=== PATIENT | female | born 1970 | race African-American/Black ===

== ENCOUNTER 2016-07-30 18:13 | Emergency (ER) | payer MEDICAID ==
[~2016-07-30] VITALS: Ht 152.4 cm; Wt 73.0 kg
[~2016-07-30 18:13] MED LIST: AMLO5TAB2 PO; BUTA1CAP28 PO; BUTA1CAP58 PO; CITA40TA5 PO; CYCL5TAB PO; CYCL5TAB10 PO; DIAZ10TA PO; DIAZ10TA4 PO; DIAZ5TAB PO; FLUD0.1T PO; GABA100C PO; GABA100C8 PO; HYDR-3240 PO; LEVE250T28; LEVE750T37 PO; LISI2.5T PO; LISI40TA PO; MECL-76 PO; MECL25TA4 PO; MELO-190 PO; METO25TA35 PO; NAPR500T3 PO; OXYC-223 PO; OXYC-229 PO; POTA10TA57 PO; RANI150T8 PO; TOPI200T6 PO; TRAM50TA2 PO; VERAPAMIL PO; ZOLP10TA3; [UNRECOGNIZED DRUG - CODE] PO; [UNRECOGNIZED DRUG - OTHER]; [UNRECOGNIZED DRUG - OTHER] PO; [UNRECOGNIZED DRUG - REMARK]
[2016-07-30] MEDS ORDERED: HYDR25TA6 PO (19:10)
[2016-07-30] MEDS ORDERED: GABA400C PO (19:10)
[2016-07-30 20:42] VITALS: BP 137/86
== END 2016-07-30 20:44 | disposition home or self-care (01) ==
LOC: ED 20:13
DX: R60.0 Localized edema (principal); G40.909 Epilepsy, unspecified, not intractable, without status epilepticus; I10 Essential (primary) hypertension; G43.909 Migraine, unspecified, not intractable, without status migrainosus; Z86.73 Personal history of transient ischemic attack (TIA), and cerebral infarction without residual deficits
CPT/HCPCS: 99284

== ENCOUNTER 2016-09-23 14:16 | Emergency (ER) | payer MEDICAID ==
[~2016-09-23] VITALS: Ht 149.9 cm; Wt 70.0 kg
[~2016-09-23 14:16] MED LIST changes: +GABA400C PO; +HYDR25TA6 PO
[2016-09-23] MEDS ORDERED: SODIUM CHLORIDE 0.9% 1,000 ML IV ONE (15:21)
[2016-09-23] MEDS ORDERED: SODIUM CHLORIDE FLUSH 10ML SYR IVF ONE (15:30)
[2016-09-23] MEDS ORDERED: ONDANSETRON 2MG/ML, 2ML IVPush ONE (15:30)
[2016-09-23] MEDS ORDERED: ONDANSETRON 2MG/ML, 2ML ONE (15:58)
[2016-09-23] MEDS ORDERED: HYDROmorphone 1 MG/ML, 1ML ONE ×2 (15:58→17:11)
[2016-09-23] MEDS: HYDROmorphone 1 MG/ML, 1ML IVPush PRN ×2 (16:02→17:18)
[2016-09-23 16:16] LABS: BLOOD UREA NITROGEN 6 mg/dL (7-18)
[2016-09-23] MEDS ORDERED: LABETALOL 5MG/ML, 20ML IVPush ONE (17:00)
[2016-09-23] MEDS ORDERED: ENALAPRILAT 1.25 MG/ML, 2ML IV ONE (17:00)
[2016-09-23] MEDS ORDERED: HYDROmorphone 2 MG/ML, 1ML IVPush ONE (17:00)
[2016-09-23] MEDS ORDERED: POTASSIUM CHLORIDE 20 MEQ TAB.ER.PRT PO ONE (17:00)
[2016-09-23] MEDS ORDERED: LABETALOL 5MG/ML, 20ML ONE (17:11)
[2016-09-23] MEDS ORDERED: ENALAPRILAT 1.25 MG/ML, 2ML ONE (17:11)
[2016-09-23] MEDS ORDERED: POTASSIUM CHLORIDE 20 MEQ TAB.ER.PRT ONE (17:12)
[2016-09-23 18:28] VITALS: BP 146/82
== END 2016-09-23 18:30 | disposition home or self-care (01) ==
LOC: ED 18:24
DX: G43.109 Migraine with aura, not intractable, without status migrainosus (principal); I10 Essential (primary) hypertension; G40.909 Epilepsy, unspecified, not intractable, without status epilepticus; Z86.73 Personal history of transient ischemic attack (TIA), and cerebral infarction without residual deficits
CPT/HCPCS: 36415; 70450; 80048; 82040; 85025; 85610; 93005; 96361; 96374; 96375; 96376; 99285; J1170; J2405; J7030

== ENCOUNTER 2016-10-07 22:26 | Emergency (ER) | payer MEDICAID ==
[~2016-10-07] VITALS: Ht 149.9 cm; Wt 69.0 kg
[~2016-10-07 22:26] MED LIST changes: +GABA-826 PO; -GABA100C8 PO
[2016-10-08] MEDS ORDERED: KETOROLAC 30 MG/1 ML IM ONE
[2016-10-08] MEDS ORDERED: METHOCARBAMOL 750 MG TABLET PO ONE
[2016-10-08 00:11] LABS: ASPARTATE AMINO TRANSFERASE 13 U/L (15-37); BLOOD UREA NITROGEN 17 mg/dL (7-18)
[2016-10-08] MEDS ORDERED: METHOCARBAMOL 750 MG TABLET ONE (00:34)
[2016-10-08] MEDS ORDERED: KETOROLAC 30 MG/1 ML ONE (00:34)
[2016-10-08 01:02] VITALS: BP 112/71
== END 2016-10-08 03:04 | disposition home or self-care (01) ==
LOC: ED 23:55
DX: S39.012A Strain of muscle, fascia and tendon of lower back, initial encounter (principal); S29.012A Strain of muscle and tendon of back wall of thorax, initial encounter; X58.XXXA Exposure to other specified factors, initial encounter; Y93.89 Activity, other specified; Y99.8 Other external cause status; Y92.89 Other specified places as the place of occurrence of the external cause
CPT/HCPCS: 36415; 80053; 81003; 85025; 96372; 99284; J1885

== ENCOUNTER 2016-10-30 15:36 | Emergency (ER) | payer MEDICAID ==
[~2016-10-30] VITALS: Ht 149.9 cm; Wt 82.0 kg
[2016-10-30] MEDS ORDERED: SODIUM CHLORIDE 0.9% 1,000ML IVBOLUS ONE (16:00)
[2016-10-30] MEDS ORDERED: ONDANSETRON 2MG/ML, 2ML IVPush ONE (16:00)
[2016-10-30] MEDS ORDERED: SODIUM CHLORIDE FLUSH 10ML SYR IVF ONE (16:00)
[2016-10-30] MEDS ORDERED: DIPHENHYDRAMINE 50 MG/ML, 1ML IVPush ONE (16:00)
[2016-10-30] MEDS ORDERED: DIPHENHYDRAMINE 50 MG/ML, 1ML ONE (16:08)
[2016-10-30] MEDS ORDERED: HYDROmorphone 1 MG/ML, 1ML ONE (16:08)
[2016-10-30] MEDS ORDERED: ONDANSETRON 2MG/ML, 2ML ONE (16:08)
[2016-10-30 16:19] LABS: BLOOD UREA NITROGEN 8 mg/dL (7-18)
[2016-10-30 16:25] LABS: ASPARTATE AMINO TRANSFERASE 9 U/L (15-37)
[2016-10-30] MEDS: HYDROmorphone 1 MG/ML, 1ML IVPush PRN ×2 (16:37→17:02)
[2016-10-30 17:39] VITALS: BP 116/74
[2016-10-30] MEDS ORDERED: KETOROLAC 30 MG/1 ML ONE (18:27)
[2016-10-30] MEDS ORDERED: KETOROLAC 30 MG/1 ML IVPush ONE (18:30)
== END 2016-10-30 19:11 | disposition home or self-care (01) ==
LOC: ED 18:04
DX: R10.9 Unspecified abdominal pain (principal); I10 Essential (primary) hypertension; G40.909 Epilepsy, unspecified, not intractable, without status epilepticus; Z86.73 Personal history of transient ischemic attack (TIA), and cerebral infarction without residual deficits
CPT/HCPCS: 36415; 74176; 80053; 81003; 83690; 84703; 85025; 96361; 96374; 96375; 99285; J1170; J1200; J1885; J2405; J7030

== ENCOUNTER 2017-01-01 23:15 | Emergency (ER) | payer MEDICAID ==
[~2017-01-01] VITALS: Ht 149.9 cm; Wt 70.0 kg
[~2017-01-01 23:15] MED LIST changes: -MELO-190 PO; +MELO7.5T31 PO; -OXYC-223 PO; -OXYC-229 PO; +OXYC-306 PO; +OXYC-307 PO
[2017-01-01 23:16] VITALS: BP 153/104
== END 2017-01-02 01:41 | disposition left against medical advice (07) ==
LOC: ED 01-02 01:35
DX: R51 Headache (principal); Z53.21 Procedure and treatment not carried out due to patient leaving prior to being seen by health care provider

== ENCOUNTER 2017-01-24 17:39 | Emergency (ER) | payer MEDICAID ==
[~2017-01-24] VITALS: Ht 149.9 cm; Wt 68.1 kg
[2017-01-24 18:51] LABS: HEMATOCRIT 47.6 % (34.6-47.8); HEMOGLOBIN 15.9 g/dL (11.7-16.4); WHITE BLOOD COUNT 5.6 x10^3/uL (3.4-10)
[2017-01-24] MEDS ORDERED: CLON0.1T PO (18:52)
[2017-01-24 18:56] LABS: BLOOD UREA NITROGEN 4 mg/dL (7-18)
[2017-01-24 19:00] VITALS: BP 144/92
[2017-01-24] MEDS ORDERED: OXYcodone/APAP 5/325MG TABLET ONE (19:29)
[2017-01-24] MEDS ORDERED: OXYcodone/APAP 5/325MG TABLET PO ONE (19:30)
== END 2017-01-24 20:02 | disposition home or self-care (01) ==
LOC: ED 19:56
DX: R60.9 Edema, unspecified (principal); I10 Essential (primary) hypertension; G40.909 Epilepsy, unspecified, not intractable, without status epilepticus; G43.909 Migraine, unspecified, not intractable, without status migrainosus; Z86.73 Personal history of transient ischemic attack (TIA), and cerebral infarction without residual deficits; Z93.3 Colostomy status
CPT/HCPCS: 36415; 80048; 82040; 83880; 85025; 93005; 99285

== ENCOUNTER 2017-04-20 18:07 | Emergency (ER) | payer MEDICAID ==
[~2017-04-20] VITALS: Ht 149.9 cm; Wt 68.2 kg
[~2017-04-20 18:07] MED LIST changes: +CLON0.1T PO; -NAPR500T3 PO; +NAPR500T4 PO
[2017-04-20 20:23] LABS: BASOPHILS # (AUTO) 0.01 x10^3/uL (0-0.1); BASOPHILS % (AUTO) 0 % (0-1); EOSINOPHILS # (AUTO) 0.05 x10^3/uL (0-0.4); EOSINOPHILS % (AUTO) 1 % (1-7); LYMPHOCYTES # (AUTO) 0.83 x10^3/uL (1-3.4); LYMPHOCYTES % (AUTO) 12 % (22-44); MD NO; MEAN CORPUSCULAR HEMOGLOBIN 30.8 pg (27.0-34.8); MEAN CORPUSCULAR HGB CONC 32.9 g/dL (32.4-35.8); MEAN CORPUSCULAR VOLUME 93.7 fL (80-100); MEAN PLATELET VOLUME 6.7 fL (7.4-10.4); MONOCYTES # (AUTO) 0.14 x10^3/uL (0.2-0.8); MONOCYTES % (AUTO) 2 % (2-9); NEUTROPHILS # (AUTO) 5.87 x10^3/uL (1.8-6.8); NEUTROPHILS % (AUTO) 85 % (42-75); PLATELET COUNT 309 x10^3/uL (130-400); RED BLOOD COUNT 5.42 x10^6/uL (3.82-5.3); RED CELL DISTRIBUTION WIDTH 15.2 % (9.6-15.2)
[2017-04-20 20:35] LABS: ANION GAP 10 mmol/L (5-15); CALCIUM 9.7 mg/dL (8.5-10.1); CHLORIDE 99 mmol/L (98-107); CREATININE 0.83 mg/dL (0.55-1.02)
[2017-04-20 20:36] LABS: ALANINE AMINOTRANSFERASE 23 U/L (12-78); ALBUMIN 4.6 g/dL (3.4-5.0)
[2017-04-20 20:38] LABS: ALKALINE PHOSPHATASE 70 U/L (45-117); BILIRUBIN,TOTAL 0.5 mg/dL (0.2-1.0); TOTAL PROTEIN 10.1 g/dL (6.4-8.2)
[2017-04-20 21:55] LABS: CULTURE INDICATED? YES; MICROSCOPIC AUTO
[2017-04-20] MEDS ORDERED: KETOROLAC 30 MG/1 ML IM ONE (22:30)
[2017-04-20] MEDS ORDERED: HYDROmorphone 1 MG/ML, 1ML IM ONE (22:30)
[2017-04-20 23:29] VITALS: BP 127/76
== END 2017-04-20 23:31 | disposition home or self-care (01) ==
LOC: ED 23:28
DX: N83.292 Other ovarian cyst, left side (principal); R10.2 Pelvic and perineal pain; Z86.73 Personal history of transient ischemic attack (TIA), and cerebral infarction without residual deficits; I10 Essential (primary) hypertension
CPT/HCPCS: 36415; 76830; 80053; 81001; 83690; 85025; 87077; 87086; 87186; 99285

== ENCOUNTER 2017-04-23 00:30 | Inpatient (IN) | payer MEDICAID ==
[~2017-04-23] VITALS: Ht 149.9 cm; Wt 81.0 kg
[2017-04-23 01:15] LABS: BASOPHILS # (AUTO) 0.03 x10^3/uL (0-0.1); BASOPHILS % (AUTO) 0 % (0-1); EOSINOPHILS # (AUTO) 0.25 x10^3/uL (0-0.4); EOSINOPHILS % (AUTO) 3 % (1-7); LYMPHOCYTES # (AUTO) 1.32 x10^3/uL (1-3.4); LYMPHOCYTES % (AUTO) 15 % (22-44); MD NO; MEAN CORPUSCULAR HEMOGLOBIN 30.7 pg (27.0-34.8); MEAN CORPUSCULAR HGB CONC 32.9 g/dL (32.4-35.8); MEAN CORPUSCULAR VOLUME 93.2 fL (80-100); MEAN PLATELET VOLUME 6.8 fL (7.4-10.4); MONOCYTES # (AUTO) 0.53 x10^3/uL (0.2-0.8); MONOCYTES % (AUTO) 6 % (2-9); NEUTROPHILS # (AUTO) 6.68 x10^3/uL (1.8-6.8); NEUTROPHILS % (AUTO) 76 % (42-75); PLATELET COUNT 336 x10^3/uL (130-400); RED BLOOD COUNT 5.28 x10^6/uL (3.82-5.3); RED CELL DISTRIBUTION WIDTH 15.2 % (9.6-15.2)
[2017-04-23 01:17] LABS: ALANINE AMINOTRANSFERASE 26 U/L (12-78); ANION GAP 15 mmol/L (5-15); CALCIUM 9.2 mg/dL (8.5-10.1); CHLORIDE 99 mmol/L (98-107); CREATININE 2.16 mg/dL (0.55-1.02)
[2017-04-23 01:22] LABS: ALKALINE PHOSPHATASE 63 U/L (45-117); BILIRUBIN,TOTAL 0.4 mg/dL (0.2-1.0); TOTAL PROTEIN 8.9 g/dL (6.4-8.2)
[2017-04-23] MEDS ORDERED: HYDROmorphone 2 MG/ML, 1ML ONE (01:42)
[2017-04-23] MEDS: HYDROmorphone 1 MG/ML, 1ML IVPush PRN ×2 (01:59→02:32)
[2017-04-23] MEDS ORDERED: SODIUM CHLORIDE 0.9% 1,000ML IVBOLUS ONE (02:00)
[2017-04-23] MEDS ORDERED: SODIUM CHLORIDE FLUSH 10ML SYR IVF ONE (02:00)
[2017-04-23] MEDS ORDERED: ONDANSETRON 2MG/ML, 2ML ONE (02:13)
[2017-04-23 02:26] LABS: CULTURE INDICATED? YES; MICROSCOPIC INDICATED
[2017-04-23] MEDS ORDERED: KETOROLAC 30 MG/1 ML ONE (02:50)
[2017-04-23] MEDS ORDERED: KETOROLAC 30 MG/1 ML IVPush ONE (03:00)
[2017-04-23] MEDS ORDERED: CEFTRIAXONE PMX 1GM/50ML 50 ML IV ONE (03:00)
[2017-04-23] MEDS ORDERED: SODIUM CHLORIDE 0.9% 1,000 ML IV SCH (03:23)
[2017-04-23] MEDS ORDERED: POLYETHYLENE GLYCOL 17 GM PACKET PO PRN (03:30)
[2017-04-23] MEDS ORDERED: ONDANSETRON 2MG/ML, 2ML IVPush PRN (03:30)
[2017-04-23] MEDS ORDERED: NICOTINE 7 MG/24 HR PATCH.TD24 TD SCH (03:30)
[2017-04-23] MEDS ORDERED: ACETAMINOPHEN 325 MG TABLET PO PRN (03:30)
[2017-04-23] MEDS ORDERED: BISACODYL 10 MG SUPP PR PRN (03:30)
[2017-04-23] MEDS ORDERED: hydrALAzine 20 MG/ML, 1ML IVPush PRN (03:30)
[2017-04-23] MEDS ORDERED: OXYcodone IR 5MG TABLET PO PRN (03:30)
[2017-04-23] MEDS ORDERED: ENALAPRILAT 1.25 MG/ML, 2ML IVPush PRN (03:30)
[2017-04-23] MEDS ORDERED: POTASSIUM CHLORIDE 40 MEQ in SODIUM CHLORIDE 0.9% 500 ML IV ONE (04:00)
[2017-04-23] MEDS ORDERED: BUTALBIT/ACETAMIN/CAFF/CODEINE CAPSULE PO PRN (04:00)
[2017-04-23] MEDS ORDERED: MECLIZINE CHEWABLE 25 MG TAB PO SCH (04:00)
[2017-04-23 04:08] LABS: FREE T4 (FREE THYROXINE) 1.12 ng/dL (0.76-1.46); THYROID STIMULATING HORMONE 0.818 mIU/L (0.358-3.740)
[2017-04-23 04:26] LABS: HEMOGLOBIN A1C 5.8 % (4.2-6.3)
[2017-04-23] MEDS ORDERED: MECLIZINE MC SCH (04:30)
[2017-04-23 05:00] VITALS: BP 97/63
[2017-04-23] MEDS: HYDROmorphone 2 MG/ML, 1ML IVPush PRN ×2 (06:00→07:52)
[2017-04-23] MEDS ORDERED: GABAPENTIN 400 MG CAPSULE PO SCH (09:00)
[2017-04-23] MEDS ORDERED: METOPROLOL TARTRATE 25 MG TABLET PO SCH (09:00)
[2017-04-23] MEDS ORDERED: CEFTRIAXONE PMX 2GM/50ML 50 ML IV SCH (09:00)
[2017-04-23] MEDS ORDERED: SENNA/DOCUSATE TABLET PO SCH (09:00)
[2017-04-23] MEDS ORDERED: LEVETIRACETAM 100 MG/ML ORAL SOL PO SCH (09:00)
[2017-04-23] MEDS ORDERED: AMLODIPINE 5 MG TABLET PO SCH (09:00)
[2017-04-23] MEDS ORDERED: LISINOPRIL 20 MG TABLET PO SCH (09:00)
== END 2017-04-23 09:40 | disposition left against medical advice (07) | DRG 693 ==
LOC: ED 03:16 → EDIP 03:20 → 4WST 04:02
PROVIDERS: ADMIT Internal Medicine; ATTEND Internal Medicine
DX: N20.2 Calculus of kidney with calculus of ureter (principal); N17.0 Acute kidney failure with tubular necrosis; N10 Acute pyelonephritis; I10 Essential (primary) hypertension; G43.909 Migraine, unspecified, not intractable, without status migrainosus; F17.210 Nicotine dependence, cigarettes, uncomplicated; E87.6 Hypokalemia; G40.909 Epilepsy, unspecified, not intractable, without status epilepticus; G89.29 Other chronic pain; F32.9 Major depressive disorder, single episode, unspecified; N83.292 Other ovarian cyst, left side; H81.10 Benign paroxysmal vertigo, unspecified ear; Z53.21 Procedure and treatment not carried out due to patient leaving prior to being seen by health care provider; Z93.0 Tracheostomy status; Z98.51 Tubal ligation status; Z93.3 Colostomy status; Z79.899 Other long term (current) drug therapy; Z80.1 Family history of malignant neoplasm of trachea, bronchus and lung; Z86.73 Personal history of transient ischemic attack (TIA), and cerebral infarction without residual deficits; Z88.5 Allergy status to narcotic agent; Z88.1 Allergy status to other antibiotic agents
CPT/HCPCS: 36415; 74176; 80053; 81001; 83036; 83690; 83735; 84439; 84443; 84703; 85025; 87077; 87086; 87186; 96374; 96376; J1170; J3480; J7030; J7040

== ENCOUNTER 2017-06-17 19:19 | Emergency (ER) | payer MEDICAID ==
[~2017-06-17] VITALS: Ht 149.9 cm; Wt 63.6 kg
[2017-06-17] MEDS ORDERED: METH750T87 PO (19:44)
[2017-06-17] MEDS ORDERED: DICY20TA3 PO (19:44)
[2017-06-17] MEDS ORDERED: HYDR30TA PEG (19:44)
[2017-06-17] MEDS ORDERED: AMIT75TA PO (19:44)
[2017-06-17] MEDS ORDERED: POTA10CA PO (19:44)
[2017-06-17] MEDS ORDERED: DIAZ5TAB4 PO (19:44)
[2017-06-17] MEDS ORDERED: SODIUM CHLORIDE 0.9% 1,000ML IVBOLUS ONE (20:00)
[2017-06-17] MEDS ORDERED: SODIUM CHLORIDE FLUSH 10ML SYR IVF ONE (20:00)
[2017-06-17] MEDS ORDERED: HYDROmorphone 1 MG/ML, 1ML IV ONE (20:00)
[2017-06-17] MEDS ORDERED: OMNIPAQUE 350 MG/ML, 100ML BOTTLE ONE (20:00)
[2017-06-17] MEDS ORDERED: ONDANSETRON 2MG/ML, 2ML IVPush ONE (20:00)
[2017-06-17 20:07] LABS: BASOPHILS # (AUTO) 0.05 x10^3/uL (0-0.1); BASOPHILS % (AUTO) 1 % (0-1); EOSINOPHILS # (AUTO) 0.08 x10^3/uL (0-0.4); EOSINOPHILS % (AUTO) 1 % (1-7); LYMPHOCYTES # (AUTO) 1.48 x10^3/uL (1-3.4); LYMPHOCYTES % (AUTO) 16 % (22-44); MD NO; MEAN CORPUSCULAR HEMOGLOBIN 31.4 pg (27.0-34.8); MEAN CORPUSCULAR HGB CONC 33.6 g/dL (32.4-35.8); MEAN CORPUSCULAR VOLUME 93.4 fL (80-100); MEAN PLATELET VOLUME 6.8 fL (7.4-10.4); MONOCYTES # (AUTO) 0.49 x10^3/uL (0.2-0.8); MONOCYTES % (AUTO) 5 % (2-9); NEUTROPHILS # (AUTO) 7.21 x10^3/uL (1.8-6.8); NEUTROPHILS % (AUTO) 77 % (42-75); PLATELET COUNT 423 x10^3/uL (130-400); RED BLOOD COUNT 4.83 x10^6/uL (3.82-5.3); RED CELL DISTRIBUTION WIDTH 14.9 % (9.6-15.2)
[2017-06-17 20:19] LABS: ALANINE AMINOTRANSFERASE 24 U/L (12-78); ALBUMIN 3.8 g/dL (3.4-5.0); ANION GAP 7 mmol/L (5-15); CHLORIDE 99 mmol/L (98-107); CREATININE 0.93 mg/dL (0.55-1.02)
[2017-06-17 20:23] LABS: ALKALINE PHOSPHATASE 58 U/L (45-117); BILIRUBIN,TOTAL 0.4 mg/dL (0.2-1.0); TOTAL PROTEIN 8.5 g/dL (6.4-8.2); TROPONIN I < 0.015 ng/mL (0.000-0.045)
[2017-06-17] MEDS ORDERED: HYDROmorphone 2 MG/ML, 1ML ONE (20:26)
[2017-06-17] MEDS ORDERED: ONDANSETRON 2MG/ML, 2ML ONE (20:27)
[2017-06-17 21:18] VITALS: BP 124/76
== END 2017-06-17 22:11 | disposition home or self-care (01) ==
LOC: ED 21:35
DX: R07.89 Other chest pain (principal); R51 Headache; G89.29 Other chronic pain; G43.909 Migraine, unspecified, not intractable, without status migrainosus; G40.909 Epilepsy, unspecified, not intractable, without status epilepticus; I10 Essential (primary) hypertension; Z93.3 Colostomy status
CPT/HCPCS: 36415; 71275; 80053; 84484; 85025; 93005; 99285; Q9967

== ENCOUNTER 2017-07-02 16:32 | Emergency (ER) | payer MEDICAID ==
[~2017-07-02] VITALS: Ht 149.9 cm; Wt 64.0 kg
[~2017-07-02 16:32] MED LIST changes: +AMIT75TA PO; +DIAZ5TAB4 PO; +DICY20TA3 PO; +HYDR30TA PEG; +METH750T87 PO; +NAPR-685 PO; -NAPR500T4 PO; +POTA10CA PO
[2017-07-02] MEDS ORDERED: SODIUM CHLORIDE FLUSH 10ML SYR IVF ONE (17:00)
[2017-07-02] MEDS ORDERED: FAMOTIDINE 20 MG/2 ML IVP ONE (17:00)
[2017-07-02] MEDS ORDERED: ONDANSETRON 2MG/ML, 2ML IVPush ONE (17:00)
[2017-07-02] MEDS ORDERED: MAALOX/HYOSCYAMINE/LIDOCAINE 45 ML BTL PO ONE (17:00)
[2017-07-02] MEDS ORDERED: MAALOX/HYOSCYAMINE/LIDOCAINE 45 ML BTL ONE (17:19)
[2017-07-02] MEDS ORDERED: ONDANSETRON 2MG/ML, 2ML ONE (17:19)
[2017-07-02] MEDS ORDERED: FAMOTIDINE 20 MG/2 ML ONE (17:19)
[2017-07-02 17:48] LABS: MICROSCOPIC NOT IND
[2017-07-02 17:50] LABS: CULTURE INDICATED? NO
[2017-07-02 19:16] LABS: BASOPHILS # (AUTO) 0.02 x10^3/uL (0-0.1); BASOPHILS % (AUTO) 0 % (0-1); EOSINOPHILS # (AUTO) 0.12 x10^3/uL (0-0.4); EOSINOPHILS % (AUTO) 2 % (1-7); LYMPHOCYTES # (AUTO) 1.34 x10^3/uL (1-3.4); LYMPHOCYTES % (AUTO) 26 % (22-44); MD NO; MEAN CORPUSCULAR HEMOGLOBIN 31.6 pg (27.0-34.8); MEAN CORPUSCULAR HGB CONC 33.6 g/dL (32.4-35.8); MEAN PLATELET VOLUME 6.9 fL (7.4-10.4); MONOCYTES # (AUTO) 0.35 x10^3/uL (0.2-0.8); MONOCYTES % (AUTO) 7 % (2-9); NEUTROPHILS # (AUTO) 3.33 x10^3/uL (1.8-6.8); NEUTROPHILS % (AUTO) 65 % (42-75); PLATELET COUNT 342 x10^3/uL (130-400); RED BLOOD COUNT 4.34 x10^6/uL (3.82-5.3); RED CELL DISTRIBUTION WIDTH 14.5 % (9.6-15.2)
[2017-07-02 19:25] LABS: ALANINE AMINOTRANSFERASE 24 U/L (12-78); ALBUMIN 3.6 g/dL (3.4-5.0); ANION GAP 6 mmol/L (5-15); CALCIUM 8.6 mg/dL (8.5-10.1); CHLORIDE 106 mmol/L (98-107); CREATININE 0.82 mg/dL (0.55-1.02)
[2017-07-02 19:30] LABS: ALKALINE PHOSPHATASE 48 U/L (45-117); BILIRUBIN,TOTAL 0.6 mg/dL (0.2-1.0); TOTAL PROTEIN 7.9 g/dL (6.4-8.2); TROPONIN I < 0.015 ng/mL (0.000-0.045)
[2017-07-02 19:54] VITALS: BP 101/65
== END 2017-07-02 20:25 | disposition home or self-care (01) ==
LOC: ED 17:17
DX: R10.13 Epigastric pain (principal); K59.00 Constipation, unspecified; I10 Essential (primary) hypertension; G89.29 Other chronic pain; G40.909 Epilepsy, unspecified, not intractable, without status epilepticus; G43.909 Migraine, unspecified, not intractable, without status migrainosus; Z93.3 Colostomy status; Z72.0 Tobacco use; Z86.73 Personal history of transient ischemic attack (TIA), and cerebral infarction without residual deficits
CPT/HCPCS: 36415; 74022; 80053; 81003; 83690; 84484; 85025; 93005; 96374; 96375; 99285; J2405; S0028

== ENCOUNTER 2017-08-23 04:27 | Emergency (ER) | payer MEDICAID ==
[~2017-08-23 04:27] MED LIST changes: +RANI150T23 PO; -RANI150T8 PO
[2017-08-23] MEDS ORDERED: MAALOX/HYOSCYAMINE/LIDOCAINE 45 ML BTL ONE (05:18)
[2017-08-23] MEDS ORDERED: ONDANSETRON ODT 4 MG ONE (05:18)
[2017-08-23] MEDS ORDERED: ONDANSETRON ODT 4 MG PO ONE (05:30)
[2017-08-23] MEDS ORDERED: MAALOX/HYOSCYAMINE/LIDOCAINE 45 ML BTL PO ONE (05:30)
[2017-08-23 05:35] LABS: BASOPHILS # (AUTO) 0.02 x10^3/uL (0-0.1); BASOPHILS % (AUTO) 0 % (0-1); EOSINOPHILS # (AUTO) 0.15 x10^3/uL (0-0.4); EOSINOPHILS % (AUTO) 3 % (1-7); LYMPHOCYTES # (AUTO) 1.89 x10^3/uL (1-3.4); LYMPHOCYTES % (AUTO) 38 % (22-44); MD NO; MEAN CORPUSCULAR HEMOGLOBIN 31.3 pg (27.0-34.8); MEAN PLATELET VOLUME 6.9 fL (7.4-10.4); MONOCYTES # (AUTO) 0.33 x10^3/uL (0.2-0.8); MONOCYTES % (AUTO) 7 % (2-9); NEUTROPHILS # (AUTO) 2.53 x10^3/uL (1.8-6.8); NEUTROPHILS % (AUTO) 51 % (42-75); PLATELET COUNT 265 x10^3/uL (130-400); RED BLOOD COUNT 4.23 x10^6/uL (3.82-5.3); RED CELL DISTRIBUTION WIDTH 13.7 % (9.6-15.2)
[2017-08-23 05:47] LABS: ALBUMIN 3.3 g/dL (3.4-5.0); ANION GAP 6 mmol/L (5-15); CALCIUM 8.5 mg/dL (8.5-10.1); CHLORIDE 107 mmol/L (98-107)
[2017-08-23 05:51] LABS: ALANINE AMINOTRANSFERASE 19 U/L (12-78); ALKALINE PHOSPHATASE 44 U/L (45-117); BILIRUBIN,TOTAL 0.4 mg/dL (0.2-1.0); CREATININE 0.84 mg/dL (0.55-1.02)
[2017-08-23 07:45] LABS: TROPONIN I < 0.015 ng/mL (0.000-0.045)
[2017-08-23] MEDS ORDERED: FAMOTIDINE 20 MG/2 ML ONE (08:11)
[2017-08-23] MEDS ORDERED: FAMOTIDINE 20 MG/2 ML IVP ONE (08:30)
[2017-08-23] MEDS ORDERED: OMNIPAQUE 350 MG/ML, 100ML BOTTLE ONE (08:38)
[2017-08-23 10:56] VITALS: BP 100/45
== END 2017-08-23 11:00 | disposition home or self-care (01) ==
LOC: ED 10:32
DX: K29.70 Gastritis, unspecified, without bleeding (principal); I10 Essential (primary) hypertension; G40.909 Epilepsy, unspecified, not intractable, without status epilepticus; G43.909 Migraine, unspecified, not intractable, without status migrainosus; Z86.73 Personal history of transient ischemic attack (TIA), and cerebral infarction without residual deficits
CPT/HCPCS: 36415; 71045; 74178; 76700; 80053; 83690; 84484; 85025; 93005; 99285; Q0162; Q9967

== ENCOUNTER 2017-09-16 13:56 | Emergency (ER) | payer MEDICAID ==
[~2017-09-16] VITALS: Ht 149.9 cm; Wt 75.0 kg
[2017-09-16 13:57] VITALS: BP 101/61
== END 2017-09-16 14:52 | disposition home or self-care (01) ==
LOC: ED 14:20
DX: K08.89 Other specified disorders of teeth and supporting structures (principal); F17.200 Nicotine dependence, unspecified, uncomplicated
CPT/HCPCS: 99283

== ENCOUNTER 2018-04-25 21:05 | Emergency (ER) | payer MEDICAID ==
[~2018-04-25] VITALS: Ht 149.9 cm; Wt 81.1 kg
[~2018-04-25 21:05] MED LIST changes: +AMLO-150 PO; -AMLO5TAB2 PO; -CLON0.1T PO; +CLON0.1T22 PO; +HYDR30TA PO; +TIZA2CAP PO
--- NOTE | 2018-04-25 22:24 | NUR ---
TO ROOM FROM LOBBY. NAD.
[2018-04-25] MEDS ORDERED: KETOROLAC 30 MG/1 ML IVPush ONE (22:30)
[2018-04-25] MEDS ORDERED: DIPHENHYDRAMINE 50 MG/ML, 1ML IVPush ONE (22:30)
[2018-04-25] MEDS ORDERED: ONDANSETRON 2MG/ML, 2ML IVPush ONE (22:30)
[2018-04-25] MEDS ORDERED: SODIUM CHLORIDE FLUSH 10ML SYR IVF ONE (22:30)
[2018-04-25] MEDS ORDERED: PROCHLORPERAZINE 5 MG/ML, 2ML IVPush ONE (22:30)
[2018-04-25] MEDS ORDERED: ONDANSETRON 2MG/ML, 2ML ONE (22:33)
[2018-04-25] MEDS ORDERED: KETOROLAC 30 MG/1 ML ONE (22:34)
[2018-04-25] MEDS ORDERED: PROCHLORPERAZINE 5 MG/ML, 2ML ONE (22:34)
[2018-04-25] MEDS ORDERED: DIPHENHYDRAMINE 50 MG/ML, 1ML ONE (22:34)
--- NOTE | 2018-04-25 22:49 | NUR ---
went to pts room for iv start and give meds as md order, while looking and feeling pts arm pts daughter stated 'your being rough, i just saw you' this nurse stated i will get some one else, pts daughter continued to talk, this nurse left room and notified kelle drummond, another rn suraj will take over pts care
[2018-04-25 23:03] LABS: BASOPHILS # (AUTO) 0.01 x10^3/uL (0-0.1); BASOPHILS % (AUTO) 0 % (0-1); EOSINOPHILS # (AUTO) 0.04 x10^3/uL (0-0.4); EOSINOPHILS % (AUTO) 0 % (1-7); LYMPHOCYTES # (AUTO) 0.77 x10^3/uL (1-3.4); LYMPHOCYTES % (AUTO) 9 % (22-44); MD NO; MEAN CORPUSCULAR HEMOGLOBIN 31.2 pg (27.0-34.8); MEAN CORPUSCULAR HGB CONC 33.6 g/dL (32.4-35.8); MEAN CORPUSCULAR VOLUME 92.7 fL (80-100); MEAN PLATELET VOLUME 7.3 fL (7.4-10.4); MONOCYTES # (AUTO) 0.17 x10^3/uL (0.2-0.8); MONOCYTES % (AUTO) 2 % (2-9); NEUTROPHILS % (AUTO) 88 % (42-75); PLATELET COUNT 289 x10^3/uL (130-400); RED CELL DISTRIBUTION WIDTH 13.4 % (9.6-15.2)
[2018-04-25 23:13] LABS: ALBUMIN 3.9 g/dL (3.4-5.0); ANION GAP 9 mmol/L (5-15); CALCIUM 9.4 mg/dL (8.5-10.1); CHLORIDE 105 mmol/L (98-107)
[2018-04-25 23:17] LABS: ALANINE AMINOTRANSFERASE 81 U/L (12-78); ALKALINE PHOSPHATASE 84 U/L (45-117); BILIRUBIN,TOTAL 0.4 mg/dL (0.2-1.0); TOTAL PROTEIN 8.6 g/dL (6.4-8.2)
[2018-04-25] MEDS ORDERED: SODIUM CHLORIDE 0.9% 1,000ML IVBOLUS ONE (23:30)
--- NOTE | 2018-04-25 23:48 | NUR ---
TASK RN: LARGE BORE PIV PLACED WITH US. MEDICATED PER EMAR AND DR. SEN ORDERS.
--- NOTE | 2018-04-26 00:46 | NUR ---
BREAK RN: PT. HAD BEEN UNABLE TO PROVIDE URINE. REQUEST DISPO FROM DANIELLE. AT THIS TIME PT. [place] [facility] [place] DAUGHTER. IVF COMPLETED. PT. REQUESTING TO GO HOME; D/C ORDERS IN.
[2018-04-26 00:47] VITALS: BP 135/77
--- NOTE | 2018-04-26 00:48 | NUR ---
PT. UNABLE TO VOID.
[2018-04-26] MEDS ORDERED: POTASSIUM CHLORIDE 20 MEQ TAB.ER.PRT ONE (00:50)
[2018-04-26] MEDS ORDERED: BUTALB/APAP/CAFFEINE 50MG/325MG/40MG PO ONE (01:00)
--- NOTE | 2018-04-26 01:01 | NUR ---
PT. MEDICATED WITH PO KDUR PER JUN; CONFIRMED WITH [facility] RESIDENT THAT DOSE IS TO BE GIVEN AT THAT TIME. PT. REFUSED FIORICET. PT. PROVIDED WITH DRY PANTS. DAUGHTER ASSISTED PT. TO GET FULLY DRESSED AND TRANSFER TO PERSONAL W/C. PT. TO D/C DESK VIA W/C. REPORTS FEELING MUCH BETTER.
[2018-04-26] MEDS ORDERED: POTASSIUM CHLORIDE 20 MEQ TAB.ER.PRT PO ONE (08:00)
[2018-04-26] MEDS ORDERED: POTASSIUM CHLORIDE 20 MEQ TAB.ER.PRT PO SCH (08:00)
== END 2018-04-26 01:06 | disposition home or self-care (01) ==
LOC: ED 23:59
DX: G43.019 Migraine without aura, intractable, without status migrainosus (principal); E87.6 Hypokalemia; R11.2 Nausea with vomiting, unspecified; R10.10 Upper abdominal pain, unspecified
CPT/HCPCS: 36415; 70450; 80053; 83690; 85025; 96361; 96374; 96375; 99284; J0780; J1200; J1885; J2405; J7030

== ENCOUNTER 2018-04-28 22:49 | Emergency (ER) | payer MEDICAID ==
[~2018-04-28] VITALS: Ht 149.9 cm; Wt 80.0 kg
[2018-04-28 22:59] VITALS: BP 113/69
--- NOTE | 2018-04-28 23:30 | NUR ---
PT SEEN HER A COUPLE DAYS AGO FOR THE SAME THING. PT STATES SHE HAS HAD 5 BRAIN SXs AND WAS RECENTLY TOLD THAT SHE HAS A CSF LEAK AND NEEDS TO BE EVALUATED AND HAVE SX BY AN ENT DOCTOR. PT STATES SHE HAS HAD THE MIGRAINE CONSISTENTLY X 3 DAYS WITH NAUSEA AND VOMITING. PT HAS A PRESCRIPTION FOR OXYCODONE AND PHENERGAN BUT STATES THEY DO NOT HELP. PT PLACED ON CONT SPO2 AND BP MONITOR, VSS.
[2018-04-28] MEDS ORDERED: KETOROLAC 30 MG/1 ML ONE (23:44)
[2018-04-28] MEDS ORDERED: PROCHLORPERAZINE 5 MG/ML, 2ML ONE (23:44)
[2018-04-28] MEDS ORDERED: DIPHENHYDRAMINE 25 MG CAPSULE ONE (23:44)
[2018-04-29] MEDS ORDERED: PROCHLORPERAZINE 5 MG/ML, 2ML IM ONE
[2018-04-29] MEDS ORDERED: KETOROLAC 30 MG/1 ML IM ONE
[2018-04-29] MEDS ORDERED: DIPHENHYDRAMINE 25 MG CAPSULE PO ONE
== END 2018-04-29 00:51 | disposition home or self-care (01) ==
LOC: ED 04-29 00:06
DX: R51 Headache (principal); R11.0 Nausea; F17.210 Nicotine dependence, cigarettes, uncomplicated
CPT/HCPCS: 96372; 99283; J1885; Q0163

== ENCOUNTER 2018-06-10 22:04 | Emergency (ER) | payer MEDICAID ==
[~2018-06-10] VITALS: Ht 149.9 cm; Wt 82.0 kg
--- NOTE | 2018-06-10 22:10 | NUR ---
NIL WHEN CALLED FOR TRIAGE
[2018-06-10] MEDS ORDERED: CYCLOBENZAPRINE 10 MG TABLET PO ONE (22:30)
[2018-06-10] MEDS ORDERED: HYDROmorphone 1 MG/ML, 1ML IM ONE (22:30)
[2018-06-10] MEDS ORDERED: ONDANSETRON ODT 4 MG PO ONE (22:30)
[2018-06-10] MEDS ORDERED: KETOROLAC 60 MG/2 ML IM ONE (22:30)
--- NOTE | 2018-06-10 22:33 | NUR ---
JAMES X TODAY AT 1500. HX OF JAMES, "THIS FEELS DIFFERENT". FACE SYMMETRICAL; SPEECH CLEAR NASAL SURGERY ON MONDAY. DENIES DRAINAGE/FEVER/N/V per triage note
[2018-06-10] MEDS ORDERED: CYCLOBENZAPRINE 10 MG TABLET ONE (22:35)
[2018-06-10] MEDS ORDERED: ONDANSETRON ODT 4 MG ONE (22:36)
[2018-06-10] MEDS ORDERED: KETOROLAC 30 MG/1 ML ONE (22:36)
[2018-06-10] MEDS ORDERED: HYDROmorphone 1 MG/ML, 1ML ONE (22:36)
--- NOTE | 2018-06-10 22:54 | NUR ---
given all meds per md order pt is in delmi vss updated daughter at bedside
--- NOTE | 2018-06-11 00:33 | NUR ---
given dc instruction pt understood pt was on pt's own w/c daughter wheeled to check out
[2018-06-11 00:34] VITALS: BP 110/65
== END 2018-06-11 00:36 | disposition home or self-care (01) ==
LOC: ED 22:26
DX: R51 Headache (principal)
CPT/HCPCS: 96372; 99283; J1170; J1885; Q0162

== ENCOUNTER 2018-08-30 18:18 | Emergency (ER) | payer MEDICAID ==
[~2018-08-30] VITALS: Ht 149.9 cm; Wt 85.0 kg
[2018-08-30 18:21] VITALS: BP 113/57
[2018-08-30] MEDS ORDERED: OXYcodone/APAP 5/325MG TABLET PO ONE (18:30)
[2018-08-30] MEDS ORDERED: OXYcodone/APAP 5/325MG TABLET ONE (18:41)
--- NOTE | 2018-08-30 19:07 | NUR ---
REPORT RECEIVED FROM ORIN THOMAS. ASSUMED CARE OF PT.
--- NOTE | 2018-08-30 19:53 | NUR ---
Patient/Caregiver given discharge instructions and they have confirmed that they understand the instructions.
== END 2018-08-30 19:55 | disposition home or self-care (01) ==
LOC: ED 18:32
DX: G89.11 Acute pain due to trauma (principal); M25.552 Pain in left hip; G89.29 Other chronic pain; F41.1 Generalized anxiety disorder; G40.909 Epilepsy, unspecified, not intractable, without status epilepticus; I10 Essential (primary) hypertension; Z86.73 Personal history of transient ischemic attack (TIA), and cerebral infarction without residual deficits; Z88.6 Allergy status to analgesic agent; Z88.1 Allergy status to other antibiotic agents; W01.0XXA Fall on same level from slipping, tripping and stumbling without subsequent striking against object, initial encounter; Y93.89 Activity, other specified; Y92.009 Unspecified place in unspecified non-institutional (private) residence as the place of occurrence of the external cause; Y99.8 Other external cause status
CPT/HCPCS: 99283

== ENCOUNTER 2018-09-08 22:10 | Emergency (ER) | payer MEDICAID ==
[~2018-09-08] VITALS: Ht 149.9 cm; Wt 82.0 kg
--- NOTE | 2018-09-08 22:31 | NUR ---
SBAR report received from RNQuirino.
[2018-09-08] MEDS ORDERED: HYDROmorphone 2 MG/ML, 1ML ONE (22:44)
[2018-09-08] MEDS ORDERED: HYDROmorphone 1 MG/ML, 1ML INJ IM ONE (23:00)
--- NOTE | 2018-09-08 23:00 | NUR ---
Pt assisted to wheelchair and into bathroom, pt assisted to toilet.
[2018-09-09] MEDS ORDERED: KETOROLAC 30 MG/1 ML ONE (00:15)
[2018-09-09 00:20] VITALS: BP 107/63
--- NOTE | 2018-09-09 00:21 | NUR ---
Patient/Caregiver given discharge instructions and they have confirmed that they understand the instructions. Patient wheeled to discharge area in home wheelchair by daughter.
[2018-09-09] MEDS ORDERED: KETOROLAC 30 MG/1 ML IM ONE (00:30)
== END 2018-09-09 00:21 | disposition home or self-care (01) ==
LOC: ED 23:14
DX: M16.12 Unilateral primary osteoarthritis, left hip (principal); F17.200 Nicotine dependence, unspecified, uncomplicated; I10 Essential (primary) hypertension; G43.909 Migraine, unspecified, not intractable, without status migrainosus
CPT/HCPCS: 96372; 99283; J1170; J1885

== ENCOUNTER 2018-09-10 22:01 | Emergency (ER) | payer MEDICAID ==
[~2018-09-10] VITALS: Ht 149.9 cm; Wt 80.0 kg
[2018-09-10 22:03] VITALS: BP 117/75
--- NOTE | 2018-09-10 22:11 | NUR ---
ASSESSMENT MADE. CHART UP FOR MD TO SEE.
[2018-09-10] MEDS ORDERED: ONDANSETRON ODT 4 MG ONE (22:34)
[2018-09-10] MEDS ORDERED: HYDROmorphone 2 MG/ML, 1ML ONE (22:35)
--- NOTE | 2018-09-10 22:41 | NUR ---
patient medicated for pain and nausea. discharged with instruction. verbalized understanding.
[2018-09-10] MEDS ORDERED: HYDROmorphone 1 MG/ML, 1ML INJ IM PRN (23:00)
[2018-09-10] MEDS ORDERED: ONDANSETRON ODT 4 MG PO ONE (23:00)
== END 2018-09-10 22:44 | disposition home or self-care (01) ==
LOC: ED 22:16
DX: G89.29 Other chronic pain (principal); M25.552 Pain in left hip; G40.909 Epilepsy, unspecified, not intractable, without status epilepticus; I10 Essential (primary) hypertension; Z72.9 Problem related to lifestyle, unspecified; Z99.3 Dependence on wheelchair
CPT/HCPCS: 96372; 99283; J1170; Q0162

== ENCOUNTER 2018-11-24 01:10 | Emergency (ER) | payer MEDICAID ==
[~2018-11-24] VITALS: Ht 149.9 cm; Wt 82.0 kg
[2018-11-24 03:41] VITALS: BP 113/67
== END 2018-11-24 03:52 | disposition home or self-care (01) ==
LOC: ED 01:40
DX: G89.11 Acute pain due to trauma (principal); M25.512 Pain in left shoulder; M25.552 Pain in left hip; I10 Essential (primary) hypertension; F17.200 Nicotine dependence, unspecified, uncomplicated; G40.909 Epilepsy, unspecified, not intractable, without status epilepticus; W05.0XXA Fall from non-moving wheelchair, initial encounter; Y93.89 Activity, other specified; Y92.009 Unspecified place in unspecified non-institutional (private) residence as the place of occurrence of the external cause; Y99.8 Other external cause status
CPT/HCPCS: 71045; 72170; 73030; 73552; 96372; 99283; J1170

== ENCOUNTER 2019-02-20 11:31 | Emergency (ER) | payer MEDICAID ==
[~2019-02-20] VITALS: Ht 149.9 cm; Wt 63.0 kg
[~2019-02-20 11:31] MED LIST changes: +RANI-467 PO; -RANI150T23 PO
--- NOTE | 2019-02-20 11:39 | NUR ---
NA X1
[2019-02-20] MEDS ORDERED: KETOROLAC 30 MG/1 ML ONE (12:58)
[2019-02-20] MEDS ORDERED: DIAZEPAM 5 MG TABLET ONE (12:58)
[2019-02-20] MEDS ORDERED: KETOROLAC 30 MG/1 ML IM ONE (13:00)
[2019-02-20] MEDS ORDERED: DIAZEPAM 5 MG TABLET PO ONE (13:00)
[2019-02-20 13:25] VITALS: BP 109/66
--- NOTE | 2019-02-20 13:30 | NUR ---
Patient/Caregiver given discharge instructions and they have confirmed that they understand the instructions. Patient in wheelchair 2/2 to CVA
== END 2019-02-20 13:31 | disposition home or self-care (01) ==
LOC: ED 13:20
DX: S39.012A Strain of muscle, fascia and tendon of lower back, initial encounter (principal); M25.552 Pain in left hip; I10 Essential (primary) hypertension; F32.9 Major depressive disorder, single episode, unspecified; G40.909 Epilepsy, unspecified, not intractable, without status epilepticus; I69.354 Hemiplegia and hemiparesis following cerebral infarction affecting left non-dominant side; F17.200 Nicotine dependence, unspecified, uncomplicated; M19.90 Unspecified osteoarthritis, unspecified site; Z98.890 Other specified postprocedural states
CPT/HCPCS: 73502; 96372; 99283; J1885

== ENCOUNTER 2019-03-28 22:31 | Emergency (ER) | payer MEDICAID ==
[2019-03-28 22:39] VITALS: BP 117/69
[2019-03-28] MEDS ORDERED: DIPHENHYDRAMINE 50 MG/ML, 1ML IVPush ONE (23:00)
[2019-03-28] MEDS ORDERED: SODIUM CHLORIDE 0.9% 1,000ML IVBOLUS ONE (23:00)
[2019-03-28] MEDS ORDERED: PROCHLORPERAZINE 5 MG/ML, 2ML IVPush ONE (23:00)
[2019-03-28] MEDS ORDERED: SODIUM CHLORIDE FLUSH 10ML SYR IVF ONE (23:00)
[2019-03-28] MEDS ORDERED: KETOROLAC 30 MG/1 ML IVPush ONE (23:00)
--- NOTE | 2019-03-29 00:17 | NUR ---
[id number]
--- NOTE | 2019-03-29 01:43 | NUR ---
NILX2
--- NOTE | 2019-03-29 01:46 | NUR ---
NILX3
== END 2019-03-29 01:49 | disposition left against medical advice (07) ==
LOC: ED 03-29 01:43
DX: G43.909 Migraine, unspecified, not intractable, without status migrainosus (principal)
CPT/HCPCS: 99281

== ENCOUNTER 2019-03-30 01:42 | Emergency (ER) | payer MEDICAID ==
[~2019-03-30] VITALS: Ht 149.9 cm; Wt 82.0 kg
[2019-03-30] MEDS ORDERED: KETOROLAC 30 MG/1 ML IVPush ONE (02:00)
[2019-03-30] MEDS ORDERED: SODIUM CHLORIDE FLUSH 10ML SYR IVF ONE (02:00)
[2019-03-30] MEDS ORDERED: PROCHLORPERAZINE 5 MG/ML, 2ML IVPush ONE (02:00)
[2019-03-30] MEDS ORDERED: DIPHENHYDRAMINE 50 MG/ML, 1ML IVPush ONE (02:00)
[2019-03-30] MEDS ORDERED: SODIUM CHLORIDE 0.9% 1,000ML IVBOLUS ONE (02:00)
[2019-03-30] MEDS ORDERED: DIPHENHYDRAMINE 50 MG/ML, 1ML ONE (02:09)
[2019-03-30] MEDS ORDERED: PROCHLORPERAZINE 5 MG/ML, 2ML ONE (02:09)
[2019-03-30] MEDS ORDERED: KETOROLAC 30 MG/1 ML ONE (02:09)
[2019-03-30 03:55] VITALS: BP 84/34
== END 2019-03-30 03:56 | disposition home or self-care (01) ==
LOC: ED 02:05
DX: G43.001 Migraine without aura, not intractable, with status migrainosus (principal); I10 Essential (primary) hypertension; G40.909 Epilepsy, unspecified, not intractable, without status epilepticus; F17.210 Nicotine dependence, cigarettes, uncomplicated; R11.2 Nausea with vomiting, unspecified
CPT/HCPCS: 96361; 96374; 96375; 99283; J0780; J1200; J1885; J7030

== ENCOUNTER 2019-05-26 05:45 | Emergency (ER) | payer MEDICAID ==
[~2019-05-26] VITALS: Ht 149.9 cm; Wt 78.0 kg
[~2019-05-26 05:45] MED LIST changes: +MECL-101 PO; -MECL25TA4 PO
--- NOTE | 2019-05-26 06:52 | NUR ---
BEDSIDE REPORT FROM MELCHOR SR, PT RESTING IN [facility], AWAITING ORDERS.
[2019-05-26] MEDS ORDERED: OXYcodone/APAP 10/325MG TABLET ONE (07:46)
[2019-05-26] MEDS ORDERED: OXYcodone/APAP 10/325MG TABLET PO ONE (08:00)
[2019-05-26 08:12] VITALS: BP 108/71
== END 2019-05-26 08:17 ==
LOC: ED 08:11
DX: M79.662 Pain in left lower leg (principal); E83.51 Hypocalcemia; E87.6 Hypokalemia; G40.909 Epilepsy, unspecified, not intractable, without status epilepticus; G43.909 Migraine, unspecified, not intractable, without status migrainosus; G89.29 Other chronic pain; Z98.51 Tubal ligation status; Z86.73 Personal history of transient ischemic attack (TIA), and cerebral infarction without residual deficits
CPT/HCPCS: 99282

== ENCOUNTER 2019-07-26 03:38 | Emergency (ER) | payer MEDICAID ==
[~2019-07-26] VITALS: Ht 149.9 cm; Wt 75.0 kg
--- NOTE | 2019-07-26 03:55 | NUR ---
PT TO ED WITH C/O OF LOWER ABDOMINAL PAIN. PT REPORTS "I THINK I HAVE APPENDICITIS", PT REPORTS SHE STILL HAS APPENDIX. PT ALSO REPORTS NAUSEA. DENIES ANY OTHER C/O AT THIS TIME. 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 FAMILY AT FOR SUPPORT. CALL LIGHT WITHIN REACH. UA SENT TO LAB.
[2019-07-26] MEDS ORDERED: SODIUM CHLORIDE FLUSH 10ML SYR IVF ONE (04:00)
[2019-07-26] MEDS ORDERED: FENTANYL PF 100 MCG/2ML IVPush PRN (04:00)
[2019-07-26] MEDS ORDERED: ONDANSETRON 2MG/ML, 2ML IVPush ONE (04:00)
[2019-07-26] MEDS ORDERED: ONDANSETRON ODT 4 MG ONE (04:30)
[2019-07-26] MEDS ORDERED: ONDANSETRON ODT 4 MG PO ONE (04:30)
[2019-07-26] MEDS ORDERED: HYDROmorphone/PF 4 MG/ML, 1ML IM PRN (04:30)
[2019-07-26] MEDS ORDERED: HYDROmorphone 1 MG/ML, 1ML INJ ONE (04:31)
[2019-07-26 04:38] LABS: HCG UR SG 1.021 (1.003-1.030)
[2019-07-26 04:40] LABS: MICROSCOPIC INDICATED
[2019-07-26 04:47] LABS: CULTURE INDICATED? NO
--- NOTE | 2019-07-26 04:52 | NUR ---
ct delay. pt need iv for labs.
[2019-07-26] MEDS ORDERED: ONDANSETRON 2MG/ML, 2ML ONE (04:58)
[2019-07-26] MEDS ORDERED: FENTANYL PF 100 MCG/2ML ONE (04:58)
--- NOTE | 2019-07-26 05:14 | NUR ---
IV INSERTED, LABS DRAWN. PT MEDICATED PER JUN. CT AWARE PT READY FOR IMAGING.
[2019-07-26 05:15] LABS: BASOPHILS # (AUTO) 0.03 x10^3/uL (0-0.1); BASOPHILS % (AUTO) 0 % (0-1); EOSINOPHILS # (AUTO) 0.05 x10^3/uL (0-0.4); EOSINOPHILS % (AUTO) 1 % (1-7); LYMPHOCYTES # (AUTO) 1.28 x10^3/uL (1-3.4); LYMPHOCYTES % (AUTO) 14 % (22-44); MD NO; MEAN CORPUSCULAR HEMOGLOBIN 31.5 pg (27.0-34.8); MEAN CORPUSCULAR HGB CONC 33.2 g/dL (32.4-35.8); MEAN CORPUSCULAR VOLUME 95.1 fL (80-100); MEAN PLATELET VOLUME 6.8 fL (7.4-10.4); MONOCYTES # (AUTO) 0.47 x10^3/uL (0.2-0.8); MONOCYTES % (AUTO) 5 % (2-9); NEUTROPHILS # (AUTO) 7.43 x10^3/uL (1.8-6.8); NEUTROPHILS % (AUTO) 80 % (42-75); PLATELET COUNT 341 x10^3/uL (130-400); RED BLOOD COUNT 4.47 x10^6/uL (3.82-5.3)
--- NOTE | 2019-07-26 05:16 | NUR ---
PT TO CT AT THIS TIME.
[2019-07-26 05:21] LABS: ALBUMIN 3.7 g/dL (3.4-5.0); ANION GAP 7 mmol/L (5-15); CALCIUM 9.3 mg/dL (8.5-10.1); CHLORIDE 111 mmol/L (98-107)
[2019-07-26 05:27] LABS: ALANINE AMINOTRANSFERASE 18 U/L (12-78); ALKALINE PHOSPHATASE 57 U/L (45-117); BILIRUBIN,TOTAL 0.6 mg/dL (0.2-1.0); CREATININE 0.76 mg/dL (0.55-1.02); TOTAL PROTEIN 8.2 g/dL (6.4-8.2)
[2019-07-26] MEDS ORDERED: POTASSIUM CHLORIDE 20 MEQ TAB.ER.PRT ONE (05:50)
[2019-07-26 05:56] VITALS: BP 127/84
[2019-07-26] MEDS ORDERED: POTASSIUM CHLORIDE 20 MEQ TAB.ER.PRT PO ONE (06:00)
--- NOTE | 2019-07-26 06:01 | NUR ---
ERMD IN ROOM TO UPDATE PT ON RESULTS AND POC.
== END 2019-07-26 06:44 | disposition home or self-care (01) ==
LOC: ED 04:44
DX: R10.31 Right lower quadrant pain (principal); I10 Essential (primary) hypertension; G40.909 Epilepsy, unspecified, not intractable, without status epilepticus; F17.210 Nicotine dependence, cigarettes, uncomplicated; Z86.73 Personal history of transient ischemic attack (TIA), and cerebral infarction without residual deficits
CPT/HCPCS: 36415; 74176; 80053; 81001; 81025; 83690; 84703; 85025; 96374; 96375; 99284; 99406; J2405; J3010

== ENCOUNTER 2019-08-14 06:19 | Emergency (ER) | payer MEDICAID ==
[~2019-08-14] VITALS: Ht 149.9 cm; Wt 80.2 kg
--- NOTE | 2019-08-14 07:15 | NUR ---
REPORT GIVEN TO MURTAZA Pitts RN
--- NOTE | 2019-08-14 07:25 | NUR ---
PT ASSISTED TO BR, UA SAMPLE COLLECTED AND SENT TO LAB. PT BACK TO BLAZE AT THIS TIME, BAILEE.
[2019-08-14 07:31] VITALS: BP 99/60
[2019-08-14 07:32] LABS: ALBUMIN 3.7 g/dL (3.4-5.0); ANION GAP 8 mmol/L (5-15); CALCIUM 9.1 mg/dL (8.5-10.1); CHLORIDE 105 mmol/L (98-107)
[2019-08-14 07:34] LABS: ALANINE AMINOTRANSFERASE 19 U/L (12-78); ALKALINE PHOSPHATASE 59 U/L (45-117); BILIRUBIN,TOTAL 0.4 mg/dL (0.2-1.0); CREATININE 0.96 mg/dL (0.55-1.02); TOTAL PROTEIN 8.2 g/dL (6.4-8.2); TROPONIN I < 0.015 ng/mL (0.000-0.045)
--- NOTE | 2019-08-14 07:40 | NUR ---
PT TO IMAGING AT THIS TIME
[2019-08-14 07:47] LABS: BASOPHILS # (AUTO) 0.01 x10^3/uL (0-0.1); BASOPHILS % (AUTO) 0 % (0-1); EOSINOPHILS # (AUTO) 0.02 x10^3/uL (0-0.4); EOSINOPHILS % (AUTO) 0 % (1-7); LYMPHOCYTES # (AUTO) 1.06 x10^3/uL (1-3.4); LYMPHOCYTES % (AUTO) 12 % (22-44); MD SCAN; MEAN CORPUSCULAR HEMOGLOBIN 31.7 pg (27.0-34.8); MEAN CORPUSCULAR HGB CONC 33.1 g/dL (32.4-35.8); MEAN CORPUSCULAR VOLUME 95.7 fL (80-100); MONOCYTES # (AUTO) 0.26 x10^3/uL (0.2-0.8); MONOCYTES % (AUTO) 3 % (2-9); NEUTROPHILS # (AUTO) 7.32 x10^3/uL (1.8-6.8); NEUTROPHILS % (AUTO) 85 % (42-75); PLATELET COUNT 241 x10^3/uL (130-400); RED BLOOD COUNT 5.02 x10^6/uL (3.82-5.3); RED CELL DISTRIBUTION WIDTH 14.2 % (9.6-15.2)
[2019-08-14 07:56] LABS: MICROSCOPIC NOT IND
[2019-08-14 08:00] LABS: CULTURE INDICATED? NO
[2019-08-14] MEDS ORDERED: POTASSIUM CHLORIDE 20 MEQ TAB.ER.PRT PO ONE (08:00)
[2019-08-14] MEDS ORDERED: POLYETHYLENE GLYCOL 17 GM PACKET NG ONE (08:00)
[2019-08-14] MEDS ORDERED: POLYETHYLENE GLYCOL 17 GM PACKET ONE (08:10)
[2019-08-14] MEDS ORDERED: POTASSIUM CHLORIDE 20 MEQ TAB.ER.PRT ONE (08:10)
== END 2019-08-14 08:30 | disposition home or self-care (01) ==
LOC: ED 07:42
DX: K58.1 Irritable bowel syndrome with constipation (principal); E87.6 Hypokalemia; R00.0 Tachycardia, unspecified; R94.31 Abnormal electrocardiogram [ECG] [EKG]
CPT/HCPCS: 36415; 74021; 80053; 81003; 83690; 83735; 84484; 85025; 93005; 99285

== ENCOUNTER 2019-10-27 03:05 | Emergency (ER) | payer MEDICAID ==
[~2019-10-27] VITALS: Ht 139.7 cm; Wt 73.0 kg
[2019-10-27 03:09] VITALS: BP 130/76
[2019-10-27] MEDS ORDERED: SODIUM CHLORIDE FLUSH 10ML SYR IVF ONE (03:30)
[2019-10-27] MEDS ORDERED: OXYcodone/APAP 5/325MG TABLET ONE (03:35)
[2019-10-27] MEDS ORDERED: OXYcodone/APAP 5/325MG TABLET PO ONE (04:00)
[2019-10-27 04:12] LABS: MEAN CORPUSCULAR HEMOGLOBIN 31.5 pg (27.0-34.8); MEAN CORPUSCULAR HGB CONC 31.9 g/dL (32.4-35.8); MEAN CORPUSCULAR VOLUME 98.6 fL (80-100); MEAN PLATELET VOLUME 6.8 fL (7.4-10.4); PLATELET COUNT 254 x10^3/uL (130-400); RED BLOOD COUNT 4.51 x10^6/uL (3.82-5.3)
[2019-10-27 04:18] LABS: ALANINE AMINOTRANSFERASE 23 U/L (12-78); ALBUMIN 3.7 g/dL (3.4-5.0); ANION GAP 8 mmol/L (5-15); CHLORIDE 111 mmol/L (98-107); CREATININE 0.83 mg/dL (0.55-1.02)
[2019-10-27 04:22] LABS: ALKALINE PHOSPHATASE 60 U/L (45-117); BILIRUBIN,TOTAL 0.3 mg/dL (0.2-1.0); TOTAL PROTEIN 7.8 g/dL (6.4-8.2)
[2019-10-27] MEDS ORDERED: hydrOXyzine 50MG TABLET ONE (04:38)
[2019-10-27 04:48] LABS: BASOPHILS # (AUTO) 0.02 x10^3/uL (0-0.1); BASOPHILS % (AUTO) 0 % (0-1); EOSINOPHILS # (AUTO) 0.15 x10^3/uL (0-0.4); EOSINOPHILS % (AUTO) 3 % (1-7); LYMPHOCYTES # (AUTO) 1.42 x10^3/uL (1-3.4); LYMPHOCYTES % (AUTO) 25 % (22-44); MD SCAN; MONOCYTES # (AUTO) 0.32 x10^3/uL (0.2-0.8); MONOCYTES % (AUTO) 6 % (2-9); NEUTROPHILS % (AUTO) 67 % (42-75)
[2019-10-27] MEDS ORDERED: FAMOTIDINE 10 MG TAB ONE (04:52)
[2019-10-27] MEDS ORDERED: FAMOTIDINE 20 MG TABLET PO ONE (05:00)
[2019-10-27] MEDS ORDERED: FAMOTIDINE 10 MG TAB PO SCH ×2 (05:00)
== END 2019-10-27 05:14 | disposition home or self-care (01) ==
LOC: ED 04:00
DX: T78.49XA Other allergy, initial encounter (principal); R21 Rash and other nonspecific skin eruption; R60.0 Localized edema; I49.8 Other specified cardiac arrhythmias; I10 Essential (primary) hypertension; G43.909 Migraine, unspecified, not intractable, without status migrainosus; F17.210 Nicotine dependence, cigarettes, uncomplicated; Z98.51 Tubal ligation status; X58.XXXA Exposure to other specified factors, initial encounter; Y93.89 Activity, other specified; Y92.89 Other specified places as the place of occurrence of the external cause; Y99.8 Other external cause status
CPT/HCPCS: 36415; 80053; 83880; 85025; 93005; 99284; 99406; J7512; Q0177

== ENCOUNTER 2020-02-26 10:20 | Emergency (ER) | payer MEDICAID ==
[~2020-02-26] VITALS: Ht 149.9 cm; Wt 79.8 kg
--- NOTE | 2020-02-26 10:39 | NUR ---
UA CUP GIVEN IN TRIAGE
[2020-02-26 11:07] LABS: BASOPHILS % (AUTO) 1 % (0-1); EOSINOPHILS % (AUTO) 1 % (1-7); LYMPHOCYTES % (AUTO) 38 % (22-44); MEAN CORPUSCULAR HEMOGLOBIN 31.2 pg (27.0-34.8); MEAN CORPUSCULAR HGB CONC 33.1 g/dL (32.4-35.8); MEAN PLATELET VOLUME 6.6 fL (7.4-10.4); MONOCYTES % (AUTO) 10 % (2-9); NEUTROPHILS % (AUTO) 49 % (42-75); PLATELET COUNT 271 x10^3/uL (130-400); RED BLOOD COUNT 4.75 x10^6/uL (3.82-5.3); RED CELL DISTRIBUTION WIDTH 13.8 % (9.6-15.2)
[2020-02-26 11:14] LABS: CHLORIDE 104 mmol/L (98-107)
[2020-02-26 11:19] LABS: MD NO
[2020-02-26 11:25] LABS: ALANINE AMINOTRANSFERASE 17 U/L (12-78); ALBUMIN 3.5 g/dL (3.4-5.0); ALKALINE PHOSPHATASE 67 U/L (45-117); ANION GAP 6 mmol/L (5-15); BILIRUBIN,TOTAL 0.4 mg/dL (0.2-1.0); CALCIUM 7.4 mg/dL (8.5-10.1); CREATININE 0.89 mg/dL (0.55-1.02); TOTAL PROTEIN 8.2 g/dL (6.4-8.2)
[2020-02-26 11:37] LABS: MICROSCOPIC NOT IND
--- NOTE | 2020-02-26 11:38 | NUR ---
PT HERE FOR C/O RIGHT SIDE LOWER BACK/FLANK PAIN THAT STARTED THIS MORNING.
[2020-02-26 11:40] VITALS: BP 98/51
[2020-02-26] MEDS ORDERED: DIAZEPAM 5 MG TABLET PO ONE (12:30)
[2020-02-26] MEDS ORDERED: KETOROLAC 30 MG/1 ML IM ONE (12:30)
[2020-02-26] MEDS ORDERED: DIAZEPAM 5 MG TABLET ONE (12:38)
[2020-02-26] MEDS ORDERED: KETOROLAC 30 MG/1 ML ONE (12:38)
== END 2020-02-26 14:06 | disposition home or self-care (01) ==
LOC: ED 11:32
DX: S29.012A Strain of muscle and tendon of back wall of thorax, initial encounter (principal); Z20.818 Contact with and (suspected) exposure to other bacterial communicable diseases; N83.292 Other ovarian cyst, left side; N20.0 Calculus of kidney; R11.10 Vomiting, unspecified; G43.909 Migraine, unspecified, not intractable, without status migrainosus; G40.909 Epilepsy, unspecified, not intractable, without status epilepticus; F17.210 Nicotine dependence, cigarettes, uncomplicated; Z86.73 Personal history of transient ischemic attack (TIA), and cerebral infarction without residual deficits; I10 Essential (primary) hypertension; X58.XXXA Exposure to other specified factors, initial encounter; Y93.89 Activity, other specified; Y92.89 Other specified places as the place of occurrence of the external cause; Y99.8 Other external cause status
CPT/HCPCS: 36415; 74176; 80053; 81003; 83690; 85025; 87635; 96372; 99284; 99406; J1885

== ENCOUNTER 2020-02-27 19:27 | Emergency (ER) | payer MEDICAID ==
[~2020-02-27] VITALS: Ht 149.9 cm; Wt 75.0 kg
[2020-02-27 20:43] LABS: ALANINE AMINOTRANSFERASE 14 U/L (12-78); ANION GAP 5 mmol/L (5-15); CALCIUM 9.2 mg/dL (8.5-10.1); CHLORIDE 101 mmol/L (98-107); CREATININE 0.85 mg/dL (0.55-1.02)
[2020-02-27 20:45] LABS: ALKALINE PHOSPHATASE 73 U/L (45-117); BASOPHILS % (AUTO) 0 % (0-1); BILIRUBIN,TOTAL 0.6 mg/dL (0.2-1.0); EOSINOPHILS % (AUTO) 0 % (1-7); LYMPHOCYTES % (AUTO) 14 % (22-44); MEAN CORPUSCULAR HGB CONC 32.8 g/dL (32.4-35.8); MEAN PLATELET VOLUME 6.7 fL (7.4-10.4); MONOCYTES % (AUTO) 7 % (2-9); NEUTROPHILS % (AUTO) 79 % (42-75); PLATELET COUNT 294 x10^3/uL (130-400); RED BLOOD COUNT 4.68 x10^6/uL (3.82-5.3); RED CELL DISTRIBUTION WIDTH 13.7 % (9.6-15.2); TOTAL PROTEIN 8.5 g/dL (6.4-8.2)
[2020-02-27 20:50] LABS: MD NO
--- NOTE | 2020-02-27 21:19 | NUR ---
PLATFORM ARCHITECT: PT. TO ROOM FROM LOBBY AT THIS TIME.
--- NOTE | 2020-02-27 21:30 | NUR ---
PT STATES SHE GOT A RX FOR NAPROXEN BUT, "IT'S NOT CUTTING IT".
[2020-02-27 21:57] LABS: MICROSCOPIC AUTO
[2020-02-27] MEDS ORDERED: MORPHINE SULFATE 4 MG/ML, 1ML IVPush PRN (22:30)
[2020-02-27] MEDS ORDERED: SODIUM CHLORIDE 0.9% 1,000ML IVBOLUS ONE (22:30)
[2020-02-27] MEDS ORDERED: ONDANSETRON 2MG/ML, 2ML IVPush ONE (22:30)
[2020-02-27] MEDS ORDERED: ONDANSETRON 2MG/ML, 2ML ONE (23:08)
[2020-02-27] MEDS ORDERED: MORPHINE SULFATE 4 MG/ML, 1ML ONE (23:08)
--- NOTE | 2020-02-27 23:16 | NUR ---
MULTIPLE IV ATTEMPTS UNSUCCESFUL, 24 TO RIGHT HAND THUMB.
[2020-02-27] MEDS ORDERED: HYDROmorphone 1 MG/ML, 1ML INJ IV ONE (23:30)
[2020-02-27] MEDS ORDERED: HYDROmorphone 1 MG/ML, 1ML INJ ONE (23:32)
[2020-02-27 23:38] VITALS: BP 105/67
--- NOTE | 2020-02-27 23:55 | NUR ---
D/C INSTRUCTIONS, MEDS & F/U APPT RV'WD WITH PT, SHE VERBALIZES UNDERSTANDING. RX GIVEN X1. ASSISTED PT OUT OF ED VIA WC. PT'S DAUGHTER TO PICK HER UP.
--- NOTE | 2020-02-29 22:37 | NUR ---
CHART ACCESSED FOR RECORDS REQUEST FROM [facility].
== END 2020-02-27 23:52 | disposition home or self-care (01) ==
LOC: ED 21:33
DX: N83.292 Other ovarian cyst, left side (principal); N20.0 Calculus of kidney; R10.32 Left lower quadrant pain; I10 Essential (primary) hypertension; G43.909 Migraine, unspecified, not intractable, without status migrainosus
CPT/HCPCS: 36415; 80053; 81001; 85025; 87086; 96361; 96374; 96375; 99284; J1170; J2405; J7030

== ENCOUNTER 2020-03-02 21:57 | Emergency (ER) | payer MEDICAID ==
[~2020-03-02] VITALS: Ht 149.9 cm; Wt 75.9 kg
[2020-03-03 00:36] LABS: BASOPHILS % (AUTO) 1 % (0-1); EOSINOPHILS % (AUTO) 0 % (1-7); LYMPHOCYTES % (AUTO) 19 % (22-44); MEAN CORPUSCULAR HEMOGLOBIN 31.2 pg (27.0-34.8); MEAN CORPUSCULAR HGB CONC 33.6 g/dL (32.4-35.8); MEAN PLATELET VOLUME 6.3 fL (7.4-10.4); MONOCYTES % (AUTO) 11 % (2-9); NEUTROPHILS % (AUTO) 69 % (42-75); PLATELET COUNT 284 x10^3/uL (130-400); RED BLOOD COUNT 5.31 x10^6/uL (3.82-5.3); RED CELL DISTRIBUTION WIDTH 13.5 % (9.6-15.2)
[2020-03-03 00:39] LABS: MD NO
[2020-03-03 00:44] LABS: ANION GAP 8 mmol/L (5-15); CALCIUM 9.7 mg/dL (8.5-10.1); CHLORIDE 95 mmol/L (98-107)
--- NOTE | 2020-03-03 00:46 | NUR ---
pt called to room from lobby
[2020-03-03] MEDS ORDERED: KETOROLAC 30 MG/1 ML ONE (01:00)
[2020-03-03] MEDS ORDERED: KETOROLAC 30 MG/1 ML IM ONE (01:00)
--- NOTE | 2020-03-03 01:08 | NUR ---
PT CC OF L ABD PAIN, "I THINK ITS A KIDNEY STONE THAT WONT PASS". PT HAS HX OF CVA WITH L SIDED HEMIPLEGIA. PT REQUESTING SOMETHING FOR PAIN.
[2020-03-03] MEDS ORDERED: SODIUM CHLORIDE 0.9% 1,000ML IVBOLUS ONE (01:30)
[2020-03-03] MEDS ORDERED: ONDANSETRON ODT 4 MG PO ONE (01:30)
--- NOTE | 2020-03-03 01:30 | NUR ---
IN AND OUT CATH FOR URINE SINCE PT UNABLE TO VOID
[2020-03-03] MEDS ORDERED: ONDANSETRON ODT 4 MG ONE (01:37)
[2020-03-03 01:46] LABS: MICROSCOPIC INDICATED
--- NOTE | 2020-03-03 01:55 | NUR ---
PT STATES TORODAL DID NOT HELP. POP RENDON NOTIFIED, WILL PLACE OTHER ORDERS.
[2020-03-03] MEDS ORDERED: HYDROmorphone 1 MG/ML, 1ML INJ IV ONE (02:00)
[2020-03-03] MEDS ORDERED: HYDROmorphone 1 MG/ML, 1ML INJ ONE (02:00)
[2020-03-03] MEDS ORDERED: POTASSIUM CHLORIDE 20 MEQ TAB.ER.PRT ONE (02:12)
[2020-03-03] MEDS ORDERED: POTASSIUM CHLORIDE 20 MEQ TAB.ER.PRT PO ONE (02:30)
[2020-03-03 03:17] VITALS: BP 117/72
== END 2020-03-03 03:27 | disposition home or self-care (01) ==
LOC: ED 03-03 03:24
DX: R10.32 Left lower quadrant pain (principal); R10.12 Left upper quadrant pain; E86.0 Dehydration; E87.6 Hypokalemia; R11.2 Nausea with vomiting, unspecified; R50.9 Fever, unspecified; G43.909 Migraine, unspecified, not intractable, without status migrainosus; G40.909 Epilepsy, unspecified, not intractable, without status epilepticus; F17.210 Nicotine dependence, cigarettes, uncomplicated; Z98.51 Tubal ligation status; Z86.73 Personal history of transient ischemic attack (TIA), and cerebral infarction without residual deficits
CPT/HCPCS: 36415; 76770; 80048; 81001; 85025; 96361; 96372; 96374; 99285; J1170; J1885; J7030; Q0162

== ENCOUNTER 2020-03-31 20:39 | Emergency (ER) | payer MEDICAID ==
[~2020-03-31] VITALS: Ht 149.9 cm; Wt 72.0 kg
[2020-03-31] MEDS ORDERED: PROPOFOL 10 MG/ML, 20ML IVPush ONE (21:30)
[2020-03-31] MEDS ORDERED: SODIUM CHLORIDE FLUSH 10ML SYR IVF ONE (21:30)
[2020-03-31] MEDS ORDERED: PROPOFOL 10 MG/ML, 20ML ONE (22:03)
--- NOTE | 2020-03-31 22:20 | NUR ---
TOTAL PROPOFOL ADMINISTERED BY PROVIDER 110MG.
--- NOTE | 2020-03-31 22:34 | NUR ---
PT AWAKE AND TALKING TO DAUGHTER ON CELL PHONE, DAUGHTER WILL BE HERE TO PICK HER UP WHEN DISCHARGED.
[2020-03-31 22:42] VITALS: BP 129/78
--- NOTE | 2020-03-31 22:59 | NUR ---
BEDSIDE REPORT TO QUINN SR. PT'S DAUGHTER AT BEDSIDE.
[2020-03-31] MEDS ORDERED: OXYcodone/APAP 5/325MG TABLET PO ONE (23:00)
[2020-03-31] MEDS ORDERED: OXYcodone/APAP 5/325MG TABLET ONE (23:03)
== END 2020-04-01 00:06 | disposition home or self-care (01) ==
LOC: ED 21:09
DX: S43.085A Other dislocation of left shoulder joint, initial encounter (principal); F17.210 Nicotine dependence, cigarettes, uncomplicated; G40.909 Epilepsy, unspecified, not intractable, without status epilepticus; I10 Essential (primary) hypertension; Z86.73 Personal history of transient ischemic attack (TIA), and cerebral infarction without residual deficits; G89.29 Other chronic pain; W18.30XA Fall on same level, unspecified, initial encounter; Y93.89 Activity, other specified; Y92.009 Unspecified place in unspecified non-institutional (private) residence as the place of occurrence of the external cause; Y99.8 Other external cause status
CPT/HCPCS: 23650; 96360; 99152; 99153; 99285

== ENCOUNTER 2020-05-26 19:25 | Emergency (ER) | payer MEDICAID ==
[~2020-05-26] VITALS: Ht 149.9 cm; Wt 73.0 kg
[~2020-05-26 19:25] MED LIST changes: -DICY20TA3 PO; +DICY20TA4 PO; +HYDR-1067 PO; -HYDR-3240 PO; -LISI40TA PO; +LISI40TA9 PO; -OXYC-306 PO; -OXYC-307 PO; +OXYC-380 PO; +OXYC1TAB17 PO
--- NOTE | 2020-05-26 21:38 | NUR ---
PT AMBULATED TO ROOM FROM LOBBY AT THIS TIME.
[2020-05-26] MEDS ORDERED: HYDROmorphone 1 MG/ML, 1ML INJ ONE (21:53)
[2020-05-26] MEDS ORDERED: HYDROmorphone 1 MG/ML, 1ML INJ IM ONE (22:00)
[2020-05-26 22:01] VITALS: BP 135/84
[2020-05-26] MEDS ORDERED: DIAZEPAM 5 MG TABLET ONE (23:11)
[2020-05-26] MEDS ORDERED: DIAZEPAM 5 MG TABLET PO ONE (23:30)
== END 2020-05-26 23:25 | disposition home or self-care (01) ==
LOC: ED 21:52
DX: G89.29 Other chronic pain (principal); M25.552 Pain in left hip; M25.551 Pain in right hip; M54.5 Low back pain; I10 Essential (primary) hypertension; G43.909 Migraine, unspecified, not intractable, without status migrainosus; G40.909 Epilepsy, unspecified, not intractable, without status epilepticus; Z86.73 Personal history of transient ischemic attack (TIA), and cerebral infarction without residual deficits
CPT/HCPCS: 96372; 99283; J1170

== ENCOUNTER 2020-08-25 17:11 | Emergency (ER) | payer MEDICAID ==
[~2020-08-25] VITALS: Ht 149.9 cm; Wt 74.0 kg
[~2020-08-25 17:11] MED LIST changes: -HYDR-1067 PO; +HYDR-2214 PO
[2020-08-25 17:15] VITALS: BP 116/68
--- NOTE | 2020-08-25 18:11 | NUR ---
SENIOR EXECUTIVE COMPENSATION ANALYST: PT TO ROOM FROM LOBBY VIA W/C.
--- NOTE | 2020-08-25 18:25 | NUR ---
ERP WAS IN TO SEE PT.
[2020-08-25] MEDS ORDERED: ONDANSETRON ODT 4 MG PO ONE (18:30)
[2020-08-25] MEDS ORDERED: OXYcodone/APAP 10/325MG TABLET ONE (18:39)
--- NOTE | 2020-08-25 18:51 | NUR ---
PT MEDICATED PER ORDERS. D/C INSTRUCTIONS & F/U APPT RV'WD WITH PT, SHE VERBALIZES UNDERSTANDING. WHEELED HERSELF OUT OF ED VIA OWN WC.
[2020-08-25] MEDS ORDERED: OXYcodone/APAP 10/325MG TABLET PO ONE (19:00)
== END 2020-08-25 18:51 | disposition home or self-care (01) ==
LOC: ED 18:40
DX: M25.512 Pain in left shoulder (principal); G89.29 Other chronic pain; F17.200 Nicotine dependence, unspecified, uncomplicated; Z86.73 Personal history of transient ischemic attack (TIA), and cerebral infarction without residual deficits
CPT/HCPCS: 99283

== ENCOUNTER 2020-08-27 02:48 | Emergency (ER) | payer MEDICAID ==
[~2020-08-27] VITALS: Ht 149.9 cm; Wt 74.0 kg
[2020-08-27] MEDS ORDERED: OXYcodone/APAP 10/325MG TABLET ONE (03:20)
[2020-08-27] MEDS ORDERED: OXYcodone/APAP 10/325MG TABLET PO ONE (03:30)
[2020-08-27 04:01] VITALS: BP 128/91
--- NOTE | 2020-08-27 04:22 | NUR ---
Patient given discharge instructions and they have confirmed that they understand the instructions. Patient d/c with use of personal wheelchair.
== END 2020-08-27 04:24 | disposition home or self-care (01) ==
LOC: ED 03:18
DX: G89.11 Acute pain due to trauma (principal); M79.632 Pain in left forearm; I10 Essential (primary) hypertension; G40.909 Epilepsy, unspecified, not intractable, without status epilepticus; F17.200 Nicotine dependence, unspecified, uncomplicated; Z86.73 Personal history of transient ischemic attack (TIA), and cerebral infarction without residual deficits; W01.0XXA Fall on same level from slipping, tripping and stumbling without subsequent striking against object, initial encounter; Y93.89 Activity, other specified; Y92.009 Unspecified place in unspecified non-institutional (private) residence as the place of occurrence of the external cause; Y99.8 Other external cause status
CPT/HCPCS: 99283

== ENCOUNTER 2020-09-07 18:31 | Emergency (ER) | payer MEDICAID ==
[~2020-09-07] VITALS: Ht 149.9 cm; Wt 74.0 kg
[2020-09-07 18:42] VITALS: BP 140/114
--- NOTE | 2020-09-07 21:26 | NUR ---
TECHNICIAN PLANT AND MAINTENANCE: NIL X 1 WHEN CALLED FOR ROOM.
--- NOTE | 2020-09-07 21:38 | NUR ---
NIL X 2 WHEN CALLED FOR VITALS.
--- NOTE | 2020-09-07 22:02 | NUR ---
NIL X 3 WHEN CALLED FOR ROOM.
== END 2020-09-07 22:04 | disposition left against medical advice (07) ==
LOC: ED 19:00
DX: R07.81 Pleurodynia (principal); Z53.21 Procedure and treatment not carried out due to patient leaving prior to being seen by health care provider

== ENCOUNTER 2020-09-13 17:47 | Emergency (ER) | payer MEDICAID ==
[~2020-09-13] VITALS: Ht 149.9 cm; Wt 74.0 kg
--- NOTE | 2020-09-13 19:17 | NUR ---
PT TO ROOM FROM LOBBY.
[2020-09-13] MEDS ORDERED: KETOROLAC 30 MG/1 ML ONE (19:23)
[2020-09-13] MEDS ORDERED: KETOROLAC 30 MG/1 ML IM ONE (19:30)
--- NOTE | 2020-09-13 20:04 | NUR ---
ASSISTED PT TO BSC.
--- NOTE | 2020-09-13 20:09 | NUR ---
PT OFF UNIT TO CT.
[2020-09-13 21:23] VITALS: BP 123/81
== END 2020-09-13 21:25 | disposition home or self-care (01) ==
LOC: ED 21:07
DX: S22.42XA Multiple fractures of ribs, left side, initial encounter for closed fracture (principal); S22.059A Unspecified fracture of T5-T6 vertebra, initial encounter for closed fracture; S22.069A Unspecified fracture of T7-T8 vertebra, initial encounter for closed fracture; R07.89 Other chest pain; G40.909 Epilepsy, unspecified, not intractable, without status epilepticus; I10 Essential (primary) hypertension; G43.909 Migraine, unspecified, not intractable, without status migrainosus; Z86.73 Personal history of transient ischemic attack (TIA), and cerebral infarction without residual deficits; F17.210 Nicotine dependence, cigarettes, uncomplicated; W18.11XA Fall from or off toilet without subsequent striking against object, initial encounter; Y93.89 Activity, other specified; Y92.89 Other specified places as the place of occurrence of the external cause; Y99.8 Other external cause status
CPT/HCPCS: 71250; 96372; 99284; J1885

== ENCOUNTER 2020-09-17 20:36 | Emergency (ER) | payer MEDICAID ==
[~2020-09-17] VITALS: Ht 149.9 cm; Wt 75.0 kg
[2020-09-17] MEDS ORDERED: HYDROmorphone 1 MG/ML, 1ML INJ IM ONE (22:30)
[2020-09-17] MEDS ORDERED: HYDROmorphone 1 MG/ML, 1ML INJ ONE (22:51)
[2020-09-17 23:08] VITALS: BP 132/77
== END 2020-09-17 23:10 | disposition home or self-care (01) ==
LOC: ED 21:30
DX: S22.42XA Multiple fractures of ribs, left side, initial encounter for closed fracture (principal); F17.210 Nicotine dependence, cigarettes, uncomplicated; Z86.73 Personal history of transient ischemic attack (TIA), and cerebral infarction without residual deficits; Z88.6 Allergy status to analgesic agent; Z88.8 Allergy status to other drugs, medicaments and biological substances; W18.30XA Fall on same level, unspecified, initial encounter; Y93.89 Activity, other specified; Y92.89 Other specified places as the place of occurrence of the external cause; Y99.8 Other external cause status
CPT/HCPCS: 96372; 99283; 99406; J1170

== ENCOUNTER 2020-10-12 01:23 | Emergency (ER) | payer MEDICAID ==
[~2020-10-12] VITALS: Ht 149.9 cm; Wt 74.0 kg
[~2020-10-12 01:23] MED LIST changes: -LISI2.5T PO; +LISI2.5T12 PO; -OXYC-380 PO; +OXYC-501 PO; +OXYC1TAB16 PO; -OXYC1TAB17 PO
[2020-10-12 01:29] VITALS: BP 122/74
[2020-10-12] MEDS ORDERED: OXYcodone/APAP 5/325MG TABLET ONE (01:39)
[2020-10-12] MEDS ORDERED: OXYcodone/APAP 5/325MG TABLET PO ONE (02:00)
== END 2020-10-12 02:21 | disposition home or self-care (01) ==
LOC: ED 01:25
DX: S22.42XA Multiple fractures of ribs, left side, initial encounter for closed fracture (principal); F17.210 Nicotine dependence, cigarettes, uncomplicated; I10 Essential (primary) hypertension; G43.909 Migraine, unspecified, not intractable, without status migrainosus; G40.909 Epilepsy, unspecified, not intractable, without status epilepticus; Z86.73 Personal history of transient ischemic attack (TIA), and cerebral infarction without residual deficits
CPT/HCPCS: 99283

== ENCOUNTER 2020-10-13 00:56 | Emergency (ER) | payer MEDICAID ==
[~2020-10-13] VITALS: Ht 149.9 cm; Wt 73.0 kg
[~2020-10-13 00:56] MED LIST changes: +LISI2.5T PO; -LISI2.5T12 PO; +OXYC-380 PO; -OXYC-501 PO; -OXYC1TAB16 PO; +OXYC1TAB17 PO
[2020-10-13 01:15] VITALS: BP 109/58
[2020-10-13] MEDS ORDERED: CYCLOBENZAPRINE 10 MG TABLET PO ONE (02:00)
[2020-10-13] MEDS ORDERED: ACETAMINOPHEN 500 MG TABLET PO ONE (02:00)
[2020-10-13] MEDS ORDERED: KETOROLAC 30 MG/1 ML IM ONE (02:00)
--- NOTE | 2020-10-13 03:22 | NUR ---
NAVAL GUNFIRE LIAISON OFFICER: NIL X 1 WHEN CALLED FOR ROOM
--- NOTE | 2020-10-13 03:40 | NUR ---
CENTERPUNCHER: PT. NIL X 2 WHEN CALLED FOR ROOM.
--- NOTE | 2020-10-13 03:52 | NUR ---
STRAP SEWER: NIL X 3 WHEN CALLED FOR ROOM
== END 2020-10-13 03:54 | disposition left against medical advice (07) ==
LOC: ED 03:30
DX: M84.48XA Pathological fracture, other site, initial encounter for fracture (principal)
CPT/HCPCS: 99281

== ENCOUNTER 2020-10-14 22:37 | Emergency (ER) | payer MEDICAID ==
[~2020-10-14] VITALS: Ht 149.9 cm; Wt 73.0 kg
[2020-10-14] MEDS ORDERED: OXYcodone/APAP 5/325MG TABLET ONE (23:53)
[2020-10-15] MEDS ORDERED: OXYcodone/APAP 5/325MG TABLET PO ONE
[2020-10-15 00:01] VITALS: BP 132/88
== END 2020-10-15 00:03 | disposition home or self-care (01) ==
LOC: ED 23:45
DX: S22.42XA Multiple fractures of ribs, left side, initial encounter for closed fracture (principal); I10 Essential (primary) hypertension; Z86.73 Personal history of transient ischemic attack (TIA), and cerebral infarction without residual deficits; X58.XXXA Exposure to other specified factors, initial encounter; Y93.89 Activity, other specified; Y92.89 Other specified places as the place of occurrence of the external cause; Y99.8 Other external cause status
CPT/HCPCS: 99283

== ENCOUNTER 2020-10-16 17:31 | Emergency (ER) | payer MEDICAID ==
[~2020-10-16] VITALS: Ht 149.9 cm; Wt 75.0 kg
[2020-10-16 17:35] VITALS: BP 108/70
[2020-10-16] MEDS ORDERED: OXYcodone/APAP 5/325MG TABLET ONE (18:19)
[2020-10-16] MEDS ORDERED: OXYcodone/APAP 5/325MG TABLET PO ONE (18:30)
== END 2020-10-16 18:24 | disposition home or self-care (01) ==
LOC: ED 18:18
DX: S22.42XA Multiple fractures of ribs, left side, initial encounter for closed fracture (principal); E11.9 Type 2 diabetes mellitus without complications; I10 Essential (primary) hypertension; Z86.73 Personal history of transient ischemic attack (TIA), and cerebral infarction without residual deficits; X58.XXXA Exposure to other specified factors, initial encounter; Y93.89 Activity, other specified; Y92.89 Other specified places as the place of occurrence of the external cause; Y99.8 Other external cause status
CPT/HCPCS: 99283

== ENCOUNTER 2020-11-04 19:46 | Emergency (ER) | payer MEDICAID ==
[~2020-11-04] VITALS: Ht 149.9 cm; Wt 74.1 kg
[2020-11-04 19:49] VITALS: BP 112/70
[2020-11-04] MEDS ORDERED: OXYcodone/APAP 10/325MG TABLET ONE (21:20)
[2020-11-04] MEDS ORDERED: OXYcodone/APAP 10/325MG TABLET PO ONE (21:30)
--- NOTE | 2020-11-04 21:32 | NUR ---
Patient/Caregiver given discharge instructions and they have confirmed that they understand the instructions. Patient ambulatory with steady gait. NAD, all questions answered appropriately, denies additional needs at this time. No personal belongings left in room after discharge. Pt used powerchair on her own power accompanied by family members. Assisted to discharge desk.
== END 2020-11-04 21:35 | disposition home or self-care (01) ==
LOC: ED 20:55
DX: M25.559 Pain in unspecified hip (principal); R07.81 Pleurodynia; G89.29 Other chronic pain; Z76.0 Encounter for issue of repeat prescription; I10 Essential (primary) hypertension; E11.9 Type 2 diabetes mellitus without complications; G40.909 Epilepsy, unspecified, not intractable, without status epilepticus; Z86.73 Personal history of transient ischemic attack (TIA), and cerebral infarction without residual deficits
CPT/HCPCS: 99283

== ENCOUNTER 2020-11-06 13:03 | Emergency (ER) | payer MEDICAID ==
[~2020-11-06] VITALS: Ht 149.9 cm; Wt 74.0 kg
[2020-11-06 13:27] VITALS: BP 117/77
[2020-11-06] MEDS ORDERED: OXYcodone/APAP 10/325MG TABLET ONE (14:45)
[2020-11-06] MEDS ORDERED: OXYcodone/APAP 10/325MG TABLET PO ONE (15:00)
== END 2020-11-06 15:03 | disposition home or self-care (01) ==
LOC: ED 14:58
DX: M54.9 Dorsalgia, unspecified (principal); Z76.0 Encounter for issue of repeat prescription; Z72.9 Problem related to lifestyle, unspecified; R00.0 Tachycardia, unspecified; F17.210 Nicotine dependence, cigarettes, uncomplicated; I10 Essential (primary) hypertension; E11.9 Type 2 diabetes mellitus without complications; G40.909 Epilepsy, unspecified, not intractable, without status epilepticus; G43.909 Migraine, unspecified, not intractable, without status migrainosus; Z86.73 Personal history of transient ischemic attack (TIA), and cerebral infarction without residual deficits
CPT/HCPCS: 99283; 99406

== ENCOUNTER 2020-12-04 02:08 | Emergency (ER) | payer MEDICAID ==
[~2020-12-04] VITALS: Ht 149.9 cm; Wt 73.4 kg
[2020-12-04] MEDS ORDERED: HYDROmorphone 1 MG/ML, 1ML INJ IVPush PRN (02:30)
[2020-12-04] MEDS ORDERED: HYDROmorphone 2 MG/ML, 1ML ONE ×2 (02:50→05:06)
[2020-12-04 03:03] LABS: ALBUMIN 3.8 g/dL (3.4-5.0); ANION GAP 5 mmol/L (5-15); CALCIUM 10.2 mg/dL (8.5-10.1); CHLORIDE 102 mmol/L (98-107); CREATININE 0.85 mg/dL (0.55-1.02)
[2020-12-04 03:07] LABS: TROPONIN I < 0.015 ng/mL (0.000-0.045)
--- NOTE | 2020-12-04 04:28 | NUR ---
CBC redrawn off IV
[2020-12-04 04:30] VITALS: BP 119/79
[2020-12-04 04:35] LABS: BASOPHILS % (AUTO) 1 % (0-1); EOSINOPHILS % (AUTO) 0 % (1-7); LYMPHOCYTES % (AUTO) 26 % (22-44); MEAN CORPUSCULAR HEMOGLOBIN 31.9 pg (27.0-34.8); MEAN CORPUSCULAR HGB CONC 33.2 g/dL (32.4-35.8); MEAN PLATELET VOLUME 6.4 fL (7.4-10.4); MONOCYTES % (AUTO) 4 % (2-9); NEUTROPHILS % (AUTO) 70 % (42-75); PLATELET COUNT 300 x10^3/uL (130-400); RED BLOOD COUNT 4.68 x10^6/uL (3.82-5.3); RED CELL DISTRIBUTION WIDTH 15.2 % (9.6-15.2)
[2020-12-04] MEDS ORDERED: HYDROmorphone 1 MG/ML, 1ML INJ IV ONE (05:30)
== END 2020-12-04 05:33 | disposition home or self-care (01) ==
LOC: ED 02:20
DX: R07.89 Other chest pain (principal); I10 Essential (primary) hypertension; E11.9 Type 2 diabetes mellitus without complications; G43.909 Migraine, unspecified, not intractable, without status migrainosus; F17.200 Nicotine dependence, unspecified, uncomplicated; G40.909 Epilepsy, unspecified, not intractable, without status epilepticus; R94.31 Abnormal electrocardiogram [ECG] [EKG]; Z86.73 Personal history of transient ischemic attack (TIA), and cerebral infarction without residual deficits
CPT/HCPCS: 36415; 71045; 80048; 82040; 84484; 85025; 93005; 96374; 96376; 99285; J1170

== ENCOUNTER 2020-12-05 09:38 | Emergency (ER) | payer MEDICAID ==
[~2020-12-05] VITALS: Ht 149.9 cm; Wt 76.4 kg
[2020-12-05 09:47] VITALS: BP 141/78
== END 2020-12-05 10:51 | disposition home or self-care (01) ==
LOC: ED 10:40
DX: S22.42XA Multiple fractures of ribs, left side, initial encounter for closed fracture (principal); G40.909 Epilepsy, unspecified, not intractable, without status epilepticus; I10 Essential (primary) hypertension; E11.9 Type 2 diabetes mellitus without complications; Z86.73 Personal history of transient ischemic attack (TIA), and cerebral infarction without residual deficits; Z98.51 Tubal ligation status; X58.XXXA Exposure to other specified factors, initial encounter; Y93.89 Activity, other specified; Y92.89 Other specified places as the place of occurrence of the external cause; Y99.8 Other external cause status
CPT/HCPCS: 99281

== ENCOUNTER 2021-01-06 20:33 | Emergency (ER) | payer MEDICAID ==
[~2021-01-06] VITALS: Ht 149.9 cm; Wt 74.1 kg
[~2021-01-06 20:33] MED LIST changes: -LISI2.5T PO; +LISI2.5T12 PO; -OXYC-380 PO; +OXYC-501 PO; +OXYC1TAB16 PO; -OXYC1TAB17 PO
[2021-01-06] MEDS ORDERED: ASPIRIN 81 MG TABLET CHEW PO ONE (21:00)
--- NOTE | 2021-01-06 22:38 | NUR ---
pt to room from lobby
[2021-01-06] MEDS ORDERED: ASPIRIN 81 MG TABLET CHEW ONE (22:47)
[2021-01-06 22:51] LABS: BASOPHILS % (AUTO) 1 % (0-1); EOSINOPHILS % (AUTO) 0 % (1-7); LYMPHOCYTES % (AUTO) 18 % (22-44); MEAN CORPUSCULAR HEMOGLOBIN 32.2 pg (27.0-34.8); MEAN CORPUSCULAR HGB CONC 33.8 g/dL (32.4-35.8); MEAN PLATELET VOLUME 6.5 fL (7.4-10.4); MONOCYTES % (AUTO) 3 % (2-9); NEUTROPHILS % (AUTO) 79 % (42-75); PLATELET COUNT 443 x10^3/uL (130-400); RED BLOOD COUNT 4.82 x10^6/uL (3.82-5.3); RED CELL DISTRIBUTION WIDTH 14.9 % (9.6-15.2)
[2021-01-06 22:54] VITALS: BP 136/90
[2021-01-06 23:03] LABS: CHLORIDE 106 mmol/L (98-107)
[2021-01-06 23:12] LABS: ALANINE AMINOTRANSFERASE 18 U/L (12-78); ALBUMIN 3.6 g/dL (3.4-5.0); ALKALINE PHOSPHATASE 70 U/L (45-117); ANION GAP 7 mmol/L (5-15); BILIRUBIN,TOTAL 0.5 mg/dL (0.2-1.0); CREATININE 0.79 mg/dL (0.55-1.02); TOTAL PROTEIN 8.7 g/dL (6.4-8.2); TROPONIN I < 0.015 ng/mL (0.000-0.045)
== END 2021-01-07 | disposition home or self-care (01) ==
LOC: ED 21:00
DX: M25.512 Pain in left shoulder (principal); R07.89 Other chest pain; G83.9 Paralytic syndrome, unspecified; R94.31 Abnormal electrocardiogram [ECG] [EKG]; I10 Essential (primary) hypertension; F17.200 Nicotine dependence, unspecified, uncomplicated; Z86.73 Personal history of transient ischemic attack (TIA), and cerebral infarction without residual deficits
CPT/HCPCS: 36415; 71045; 80053; 84484; 85025; 93005; 99285

== ENCOUNTER 2021-01-10 21:56 | Emergency (ER) | payer MEDICAID ==
[~2021-01-10] VITALS: Ht 149.9 cm; Wt 75.0 kg
[2021-01-10 21:59] VITALS: BP 109/64
[2021-01-10] MEDS ORDERED: OXYcodone/APAP 5/325MG TABLET ONE (23:47)
[2021-01-11] MEDS ORDERED: OXYcodone/APAP 5/325MG TABLET PO ONE
== END 2021-01-11 00:09 | disposition home or self-care (01) ==
LOC: ED 22:05
DX: G89.29 Other chronic pain (principal); M25.551 Pain in right hip; M25.552 Pain in left hip; F17.210 Nicotine dependence, cigarettes, uncomplicated; E11.9 Type 2 diabetes mellitus without complications; G40.909 Epilepsy, unspecified, not intractable, without status epilepticus; I10 Essential (primary) hypertension; G43.909 Migraine, unspecified, not intractable, without status migrainosus; Z86.73 Personal history of transient ischemic attack (TIA), and cerebral infarction without residual deficits
CPT/HCPCS: 99406